=== PATIENT | male | born 1955 | race Caucasian/White ===

== ENCOUNTER 2020-08-30 07:32 | Outpatient (REF) | payer BC, SELFPAY ==
[2020-08-30 09:44] LABS: Prostate Specific Antigen 0.15 ng/mL (<0.05-4.0)
== END 2020-08-30 07:33 | disposition home or self-care (01) ==
LOC: HO.LAB 07:32
PROVIDERS: PCP Family Medicine; Visit Provider Urology
DX: C61 Malignant neoplasm of prostate (principal)
CPT/HCPCS: 36415; 84153

== ENCOUNTER → 2020-09-14 09:57 | Outpatient (BNVA) | payer BC, SELFPAY | PROVIDERS: PCP Family Medicine; Visit Provider Urology ==

== ENCOUNTER 2021-05-29 06:55 | Outpatient (REF) | payer BC, SELFPAY ==
[2021-05-29 09:01] LABS: PSA,Total (Free>4and<10) 0.17 ng/mL (0.00-4.00)
== END 2021-05-29 06:56 | disposition home or self-care (01) ==
LOC: HO.LAB 06:55
PROVIDERS: Absent Provider Urology; PCP Family Medicine; Visit Provider Urology
DX: C61 Malignant neoplasm of prostate (principal); Z12.5 Encounter for screening for malignant neoplasm of prostate
CPT/HCPCS: 36415; 84153

== ENCOUNTER → 2021-06-05 09:48 | Outpatient (BNVA) | payer BC, SELFPAY | PROVIDERS: PCP Family Medicine; Visit Provider Urology ==

== ENCOUNTER 2021-06-16 04:23 | Emergency (ER) | payer BC, SELFPAY ==
[2021-06-16 04:47] VITALS: BP 122/83; PULSE 72; RESP 15; TEMP 36.6; O2SAT 97; BMI 25.7
[2021-06-16 05:07] LABS: Basophils Percent Auto 0.8 % (0-2); Eosinophils Absolute Auto 0.1 X10*3/uL (0.0-0.4); Eosinophils Percent Auto 2.1 % (0-4); Hematocrit 43.4 % (42-52); Hemoglobin 14.7 g/dl (14.0-18.0); Imm Gran Abs Auto 0.02 X10*3/uL (0.00-0.03); Imm Gran Pct Auto 0.4 % (0.0-0.4); Lymphocytes Absolute Auto 0.9 X10*3/uL (1.2-4.9); MANUAL DIFF FLAG NO; Mean Corpuscular HGB Conc 33.9 g/dl (31.0-36.0); Mean Corpuscular Hemoglobin 31.2 pg (27.0-33.0); Mean Corpuscular Volume 92.1 fL (80-98); Monocytes Absolute Auto 0.6 X10*3/uL (0.1-1.2); Monocytes Percent Auto 12.6 % (2-11); Neutrophils Absolute Auto 3.1 X10*3/uL (2.0-8.3); Neutrophils Percent Auto 65.1 % (45-73); Platelet Count 294 X10*3/uL (160-400); Red Blood Count 4.71 X10*6/uL (4.60-5.80); Red Cell Distribution Width 12.7 % (11.0-16.0); White Blood Count 4.8 X10*3/uL (4.8-10.8)
[2021-06-16 05:16] LABS: Appearance Urine CLEAR; Color Urine YELLOW; Glucose Urine UA NEG (NEG); Leukocyte Esterase Urine NEG (NEG); Nitrite Urine NEG (NEG); Specific Gravity - Urine >= 1.030 (1.005-1.025); Urine Blood NEG (NEG); Urine Ketones NEG (NEG); Urine Protein NEG (NEG-TRACE)
[2021-06-16 05:32] LABS: Alanine Aminotransferase 22 U/L (0-40); Albumin Level 4.1 g/dL (3.5-5.0); Alkaline Phosphatase 66 U/L (39-117); Anion Gap 11 (12-20); Aspartate Amino Transferase 18 U/L (5-37); Bilirubin Total 0.6 mg/dL (0.0-1.0); Blood Urea Nitrogen 13 mg/dL (9-16); Calcium 9.5 mg/dL (8.4-10.2); Carbon Dioxide 25 mmol/L (22-29); Chloride 103 mmol/L (96-108); Creatinine Clr Calc Pharmacy 91.3; Estimated Glomerular Filt Rate > 60; Glucose Random 107 mg/dL (60-115); Potassium 4.2 mmol/L (3.3-5.1); Sodium 135 mmol/L (135-145); Total Protein 6.6 g/dL (6.5-8.0)
--- NOTE | 2021-06-16 05:36 | ED.GENADULT ---
HPI - General Adult General Chief complaint: General Medical Stated complaint: Pain when urinaring/Headache/Weakness Time Seen by Provider: 06/16/21 05:28 Source: patient Mode of arrival: ambulatory Limitations: no limitations History of Present Illness HPI narrative: Patient comes emergency room complaining of generalized weakness for 2 weeks. Patient complaining of dysuria for 6 weeks. Patient states that he is concerned that his renal function is not well. Patient states that he had kidney stones several years ago. Patient has an appointment in [address] scan to rule out nephrolithiasis. Patient denies fever chills, no flank pain Related Data Home Medications Medication Instructions Recorded Confirmed lisinopril 20 mg tablet 20 mg PO DAILY 09/14/20 06/16/21 famotidine 20 mg tablet 20 mg PO BID 06/05/21 06/16/21 Previous Rx's Medication Instructions Recorded finasteride 5 mg tablet 5 mg PO DAILY 90 Days #90 tab 06/05/21 Allergies Allergy/AdvReac Type Severity Reaction Status Date / Time No Known Allergies Allergy Verified 06/16/21 04:53 [No Known Allergies*] Review of Systems Review of Systems: Constitutional : No Weight loss, No Fever, No Chills, No Night Sweats, No Fatigue, No Malaise ENT/Mouth : No Hearing loss, No Ear Pain, No Nasal Congestion, No Sinus Pain, No Hoarseness, No sore throat, No Rhinorrhea, No Swallowing Difficulty Eyes: No Eye Pain, No Swelling, No Redness, No Foreign Body, No Discharge, No Vision Changes Cardiovascular : No Chest Pain, No SOB, No Dyspnea on Exertion, No Orthopnea, No Edema, No Palpitations Respiratory : No Cough, No Sputum, No Wheezing, No Smoke Exposure, No Dyspnea Gastrointestinal : No Nausea, No Vomiting, No Diarrhea, No Constipation, No abdominal Pain, No Hematochezia, No Melena Genitourinary : Complaining of chronic dysuria for more than 6 weeks, complaining of urinary frequency, especially at night, wakes up every hour to urinate, No Hematuria, No Urinary Incontinence, No Urgency, No Flank Pain, No Urinary Flow Changes, No Hesitancy Musculoskeletal : No joint pain, No Myalgias, No Joint Swelling Skin : No Skin Lesions, No rash Neuro : No Weakness, No Numbness, No Paresthesias, No Loss of Consciousness, No Dizziness, No Headache Psych : No Anxiety/Panic, No Depression, No SI/HI/AH/VH, No Social Issues, Heme/Lymph: No Bruising, No Bleeding,No Lymphadenopathy Endocrine : No Polyuria, No Polydipsia, No Temperature Intolerance [facility] Past Medical History Medical History Prostate cancer Renal stone Renal stones Social History Social History Alcohol intake: never Patient Tobacco Use Status: Never used Tobacco Use of substances other than those prescribed or required for medical reasons: No Advance Directives: No Physical Exam Vital Signs: Vital Signs: Last Vital Signs Temp 97.8 F 06/16/21 04:47 Pulse 72 06/16/21 04:47 Resp 15 06/16/21 04:47 BP 122/83 06/16/21 04:47 Pulse Ox 97 06/16/21 04:47 Body Mass Index 25.7 Const: Other: Appearance: Alert. Oriented X3. No acute distress. Very anxious Eyes: Pupils equal, round and reactive to light. ENT: Pharynx normal. Neck: Normal inspection. Neck supple. No lymph nodes noted. No crepitus CVS: Normal heart rate and rhythm. Pulses normal. Normal S1 and S2 Respiratory: No respiratory distress. Breath sounds normal. No Wheezing. No rales Abdomen: Soft and nontender. No rigidity. No distention. No CVA tenderness Skin: Skin warm and dry. Normal skin color. Normal skin turgor. Extremities: No lower extremity edema. No Lacerations. No Rash Neuro: Oriented X 3. No motor deficit. No sensory deficit. Moving all extermities. No slurred speech. Course Course Course Narrative: Patient declined to get a CT scan today, patient states that he will wait for his appointment in 4 days. Patient also declined a prescription for phenazopyridine. Medical Decision Making Lab Data Result diagrams: 06/16/21 05:02 06/16/21 05:03 Labs: Lab Results 06/16/21 06/16/21 06/16/21 Range/Units 05:02 05:02 05:03 WBC 4.8 (4.8-10.8) X10*3/uL RBC 4.71 (4.60-5.80) X10*6/uL Hgb 14.7 (14.0-18.0) g/dl Hct 43.4 (42-52) % MCV 92.1 (80-98) fL MCH 31.2 (27.0-33.0) pg MCHC 33.9 (31.0-36.0) g/dl RDW 12.7 (11.0-16.0) % Plt Count 294 (160-400) X10*3/uL MPV 9.0 L (9.4-12.4) fL Immature Gran % (Auto) 0.4 (0.0-0.4) % Neut % (Auto) 65.1 (45-73) % Lymph % (Auto) 19.0 L (20-40) % Terry % (Auto) 12.6 H (2-11) % Eos % (Auto) 2.1 (0-4) % Baso % (Auto) 0.8 (0-2) % Lymph # (Auto) 0.9 L (1.2-4.9) X10*3/uL Terry # (Auto) 0.6 (0.1-1.2) X10*3/uL Eos # (Auto) 0.1 (0.0-0.4) X10*3/uL Baso # (Auto) 0.0 (0.0-0.2) X10*3/uL Abs Immat Gran (auto) 0.02 (0.00-0.03) X10*3/uL Absolute Neuts (auto) 3.1 (2.0-8.3) X10*3/uL Absolute Nucleated RBC 0.000 (0.0-0.012) X10*3/uL Nucleated RBC % (auto) 0.0 (0.0-0.2) /100WBC Sodium 135 (135-145) mmol/L Potassium 4.2 (3.3-5.1) mmol/L Chloride 103 (96-108) mmol/L Carbon Dioxide 25 (22-29) mmol/L Anion Gap 11 L (12-20) BUN 13 (9-16) mg/dL Creatinine 0.87 (0.5-1.4) mg/dL Estim Creat Clear Calc 91.3 Estimated GFR > 60 Random Glucose 107 (60-115) mg/dL Calcium 9.5 (8.4-10.2) mg/dL Total Bilirubin 0.6 (0.0-1.0) mg/dL AST 18 (5-37) U/L ALT 22 (0-40) U/L Alkaline Phosphatase 66 (39-117) U/L Total Protein 6.6 (6.5-8.0) g/dL Albumin 4.1 (3.5-5.0) g/dL Urine Color YELLOW Urine Appearance CLEAR Urine pH 6.0 (5.0-8.0) Ur Specific [place] >= 1.030 H (1.005-1.025) Urine Protein NEG (NEG-TRACE) MG/DL Urine Glucose (UA) NEG (NEG) MG/DL Urine Ketones NEG (NEG) MG/DL Urine Blood NEG (NEG) Urine Nitrite NEG (NEG) Ur Leukocyte Esterase NEG (NEG) Discharge Plan Discharge Clinical Impression: Dysuria Patient Disposition: Home, Self-Care Instructions: Dysuria (ED) Additional Instructions: Please follow-up with your primary care physician tomorrow. If you have any worsening or new symptoms, please return to the emergency room or call 911 Prescriptions: No Action finasteride 5 mg tablet 5 mg PO DAILY 90 Days Qty: 90 RF: 1
[2021-06-16 05:50] VITALS: BP 110/80; PULSE 73; RESP 18; O2SAT 96
== END 2021-06-16 05:55 | disposition home or self-care (01) ==
PROVIDERS: Emergency Provider Emergency Medicine; PCP Family Medicine
DX: R30.0 Dysuria (principal); Z79.899 Other long term (current) drug therapy
CPT/HCPCS: 36415; 80053; 81003; 85025; 99283; 99284

== ENCOUNTER 2021-06-20 16:08 | Outpatient (REF) | payer BC, SELFPAY ==
--- NOTE | ~2021-06-20 | CT_ITS ---
EXAMINATION: CT ABDOMEN AND PELVIS WITHOUT CONTRAST CLINICAL INFORMATION: Calculus of kidney COMPARISON: 02/06/2017 TECHNIQUE: Multidetector volumetric imaging was performed from the superior aspect of the liver through the pubic symphysis. Sagittal and coronal reformatted images were obtained on the technologist's workstation. This CT examination was performed using dose optimization techniques as appropriate, variously including the following: *Automated exposure control *Adjustment of mA and/or kV according to patient size (this includes techniques or standardized protocols for targeted exams where dose is matched to indication/reason for exam; i.e. extremities or head) *Use of iterative reconstruction technique DLP: 474 mGy-cm FINDINGS: LUNG BASES: The visualized lung bases are clear. Coronary artery calcification. LIVER, GALLBLADDER, AND BILIARY TREE: The liver is normal in size, shape, and attenuation. No focal hepatic lesion or biliary ductal dilatation is present. The gallbladder is unremarkable with no evidence of radiopaque gallstones, gallbladder wall thickening, or obvious pericholecystic inflammatory changes. PANCREAS: Unremarkable. SPLEEN: Unremarkable. ADRENAL GLANDS: Unremarkable. KIDNEYS AND URETERS: The kidneys are normal in size, shape, and attenuation. No hydronephrosis or hydroureter. Multiple bilateral renal calculi are noted. On the right there are at least 4 calculi. 0.4 cm upper pole calculus is 10 cm from the posterior axillary line. There are 2 left-sided calculi measuring 0.2 cm at the midpole, 9.5 cm from the posterior axillary line. BLADDER: Unremarkable. GASTROINTESTINAL TRACT: Stomach is unremarkable. Normal caliber small bowel. No obstruction. Normal appendix. No colonic wall thickening or acute inflammatory change. No free air or free fluid. ABDOMINAL WALL: No significant hernia is appreciated. LYMPH NODES: Normal. VASCULAR: Normal caliber aorta with minimal atherosclerotic calcification. PELVIC VISCERA: No pelvic mass identified. OSSEOUS STRUCTURES: No acute or suspicious osseous abnormality. Mild degenerative changes of the spine. CT/CT abdomen pelvis wo con IMPRESSION: Multiple bilateral renal calculi without obstruction.
== END 2021-06-20 16:09 | disposition home or self-care (01) ==
LOC: HO.CT 16:08
PROVIDERS: PCP Family Medicine; Visit Provider Urology
DX: N20.0 Calculus of kidney (principal)
CPT/HCPCS: 74176

== ENCOUNTER → 2021-07-10 08:38 | Outpatient (BNVA) | payer BC, SELFPAY | PROVIDERS: PCP Family Medicine; Visit Provider Urology ==

== ENCOUNTER → 2021-07-25 14:30 | Outpatient (BNVA) | payer BC, SELFPAY | PROVIDERS: PCP Family Medicine; Visit Provider Urology | DX: C61 Malignant neoplasm of prostate (principal); N99.89 Other postprocedural complications and disorders of genitourinary system | CPT/HCPCS: 52000 ==

== ENCOUNTER 2021-08-27 11:11 | Day surgery (SDC) | payer BC, SELFPAY ==
[2021-08-20 13:56] VITALS: BMI 25.7
--- NOTE | 2021-08-22 15:41 | HO.ANESPROP2 ---
Documented by User: Arline Han NP 08/22/21 15:41 HPI - Anesthesia Eval Consult details Narrative: 66yo M for Cystoscopy stricture Dilation [facility] Active Problems Active Problems: All Active Problems (Updated 08/20/21 @ 13:54 by Saritha Smith RN) Dysuria (Acute) Anastomotic stricture of urinary tract (Acute) Renal stone (Acute) Prostate cancer (Acute) Past Medical History Medical History (Updated 08/20/21 @ 13:54 by Saritha Smith RN) GERD (gastroesophageal reflux disease) HTN (hypertension) Prostate cancer Renal stone Surgical History Surgical History (Updated 08/20/21 @ 13:50 by Saritha Smith RN) Hx of cystoscopy Hx of lithotripsy Hx of radical prostatectomy Social History Social History Alcohol intake: never Patient Tobacco Use Status: Never used Tobacco Advance Directives Information Provided: Yes (informational brochure mailed) Advance Directives on File: No Meds Allergies Allergy/AdvReac Type Severity Reaction Status Date / Time No Known Allergies Allergy Verified 07/25/21 14:42 [No Known Allergies*] Home Medications Medication Instructions Recorded Confirmed Last Taken Type lisinopril 20 mg tablet 20 mg PO DAILY 09/14/20 08/20/21 Unknown History famotidine 20 mg tablet 20 mg PO BID 06/05/21 08/20/21 Unknown History Exam Exam Date and Time: August 22, 2021 1541 Height,Weight and Vital Signs: Height 5 ft 11 in Weight 83.915 kg Pertinent Lab Results Pertinent Lab Results: Laboratory Tests 06/16/21 06/16/21 05:02 05:03 WBC 4.8 Hgb 14.7 Hct 43.4 Plt Count 294 Sodium 135 Potassium 4.2 Chloride 103 Carbon Dioxide 25 BUN 13 Creatinine 0.87 Assessment and Plan Assessment Anesthesia Assessment: Chart Reviewed Documented by User: Geovanny Mallory 08/27/21 12:57 PMFSH Past Medical History Medical History (Updated 08/20/21 @ 13:54 by Saritha Smith RN) GERD (gastroesophageal reflux disease) HTN (hypertension) Prostate cancer Renal stone Functional capacity: independent ambulation Family History Family history of problems with anesthesia: No Surgical History Surgical History (Updated 08/20/21 @ 13:50 by Saritha Smith RN) Hx of cystoscopy Hx of lithotripsy Hx of radical prostatectomy History of Problems with Anesthesia: Yes (Ponv ) Social History Social History Alcohol intake: never Patient Tobacco Use Status: Never used Tobacco Advance Directives Information Provided: Yes (informational brochure mailed) Advance Directives on File: No Meds Allergies Allergy/AdvReac Type Severity Reaction Status Date / Time No Known Allergies Allergy Verified 07/25/21 14:42 [No Known Allergies*] Home Medications Medication Instructions Recorded Confirmed Last Taken Type lisinopril 20 mg tablet 20 mg PO DAILY 09/14/20 08/20/21 Unknown History famotidine 20 mg tablet 20 mg PO BID 06/05/21 08/20/21 Unknown History Exam Airway Mallampati Class: IV TM Dist: >3cm Neck ROM: Full Loose/Missing/Broken Teeth: Yes (Chipped , poor dentation ) Heart: rrr Lungs: bl breath sounds Assessment and Plan Assessment Anesthesia Assessment: Anesthesia Plan Discussed Final Anesthetic Review Family History of Problems with Anesthesia: No History of Problems with Anesthesia: Yes (Ponv ) NPO: Yes ASA Class: II Final Preanesthetic Review: Anes Risks/Benef Reviewed Patient Risk: Intermediate Procedure Risk: Intermediate Anesthetic Plan Anesthetic Plan: GA Disposition: Standard PACU
[2021-08-27] VITALS (10 sets, daily range): BP systolic 110–124; BP diastolic 73–84; PULSE 63–89; RESP 13–18; TEMP 36.6–36.9; O2SAT 96–98
[2021-08-27] MEDS: Lactated Ringers 1,000 ML 100 ML IVCONT (12:40)
--- NOTE | 2021-08-27 14:14 | MHC.SHP ---
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 Plan for cystoscopy bladder neck incision Relevant Family History (Specify if Yes): No Relevant Social History: None Present Medications: see Short Stay Collaborative assessment Medical History: Significant History History of Previous Operations: No relevant previous surgery Allergies: Allergies Allergy/AdvReac Type Severity Reaction Status Date / Time No Known Allergies Allergy Verified 07/25/21 14:42 [No Known Allergies*] Review of Systems Sugical H&P ROS: Negative: Constitution, Cardiovascular, Respiratory, Neurological, Psychiatric, Hem-Onc, Allergic/Immunologic, Gastrointestinal, Genitourinary, Musculoskeletal, Integumentary, Endocrine and Eyes/Ears/Nose/Throat Exam Surgical H&P Exam: Normal: HEENT, Normal: Heart, Normal: Lungs, Normal: Extremities, Normal: Abdomen, Normal: Skin and Normal: Neurological Plan Diagnosis/Plan: Unchanged ( post radiation bladder neck contracture, plan for cystoscopy bladder neck incision) I have reviewed the history and physical and performed a pertinent physical examination on my patient. No changes have occurred unless specified.
--- NOTE | 2021-08-27 14:58 | P.OP_ITS ---
Operative Note Operative Note Date of Service: 08/27/21 Narrative: PreOperative Diagnosis: bladder neck contraction Post Operative Diagnosis: bladder stone in prostatic fossa with bladder neck narrowing Procedure: cystoscopy laser lithotripsy of bladder stone Surgeon: Dr Ronnell Pena Anesthesia: general Indications for procedure: 66-year-old male. Previous prostate cancer with prostatectomy and external beam radiation. Presented with weakness of stream in on cystoscopy unable to pass the bladder neck due to bladder neck contracture. Recommend operative bladder neck incision. Understands main adverse event would be incontinence. Procedure: After informed consent was verified the patient was brought to the operating room and placed in a supine position. Anesthesia was administered per protocol. patient was placed in modified dorsal lithotomy position and prepped and draped in sterile fashion. Safety pause time-out performed. Antibiotics being given. Cystoscopy performed with 22 Taiwanese cystoscope. Unable to advance beyond bladder neck. Appeared to have stone in prostatic fossa prevent thing advancement. Sensor guidewire placed through open-ended catheter. Cystoscope removed. Cystoscope placed again and laser fiber placed through open-ended catheter. Three hundred sixty micron laser fiber placed. Stone broken up and pieces were flushed back into the bladder. We could not advance 22 Taiwanese cystoscope. This was due to tightness at the bladder neck. We switched to a 18 Taiwanese cystoscope.At this point we were able to enter the bladder. All of the stone pieces were removed and some sent for analysis. Bladder neck was open enough To advance the 18 Taiwanese cystoscope.. Given prior radiation and concerns regarding healing we will not open any larger. A 16 Taiwanese Martínez catheter was placed alongside the Sensor wire into the bladder. The bladder was drained. The wire removed. He tolerated procedure well was extubated in operating room transferred in stable condition to the recovery area Pathology: bladder stones Drains: Martínez catheter 16 Taiwanese
== END 2021-08-27 16:50 | disposition home or self-care (01) ==
PROVIDERS: PCP Family Medicine; Visit Provider Urology
PROC: 0T7C8ZZ Dilation of Bladder Neck, Via Natural or Artificial Opening Endoscopic (ICD-10-PCS; CPT 52317; principal; 2021-08-27 13:00)
DX: N99.89 Other postprocedural complications and disorders of genitourinary system (principal); Y83.8 Other surgical procedures as the cause of abnormal reaction of the patient, or of later complication, without mention of misadventure at the time of the procedure; N32.0 Bladder-neck obstruction; Z92.3 Personal history of irradiation; Z85.46 Personal history of malignant neoplasm of prostate; Z90.79 Acquired absence of other genital organ(s); N21.0 Calculus in bladder; Z87.442 Personal history of urinary calculi; I10 Essential (primary) hypertension; K21.9 Gastro-esophageal reflux disease without esophagitis; Z79.899 Other long term (current) drug therapy
CPT/HCPCS: 52317; 88300; C1769; J1100; J1956; J2250; J2405; J2765; J3010

== ENCOUNTER → 2021-08-30 08:59 | Outpatient (BNVA) | payer BC, SELFPAY | PROVIDERS: PCP Family Medicine; Visit Provider Urology | DX: C61 Malignant neoplasm of prostate (principal); R30.0 Dysuria; N99.89 Other postprocedural complications and disorders of genitourinary system | CPT/HCPCS: 51700; 51798 ==

== ENCOUNTER → 2021-10-31 10:03 | Outpatient (BNVA) | payer BC, SELFPAY | PROVIDERS: PCP Family Medicine; Visit Provider Urology ==

== ENCOUNTER 2022-01-04 16:49 | Emergency (ER) | payer BC, SELFPAY ==
[2022-01-04 17:01] VITALS: BP 125/89; PULSE 100; RESP 19; TEMP 36.6; O2SAT 98; BMI 26.4
== END 2022-01-04 20:18 | disposition left against medical advice (07) ==
LOC: HO.ED 20:17
PROVIDERS: Emergency Provider Emergency Medicine; PCP Family Medicine
DX: R31.9 Hematuria, unspecified (principal)

== ENCOUNTER → 2022-01-08 08:15 | Outpatient (BNVA) | payer BC, SELFPAY | PROVIDERS: PCP Family Medicine; Visit Provider Urology | DX: N99.89 Other postprocedural complications and disorders of genitourinary system (principal) | CPT/HCPCS: 51700; 51798 ==

== ENCOUNTER → 2022-01-30 13:32 | Outpatient (BNVA) | payer BC, SELFPAY | PROVIDERS: PCP Family Medicine; Visit Provider Urology | DX: N99.89 Other postprocedural complications and disorders of genitourinary system (principal) | CPT/HCPCS: 51798 ==

== ENCOUNTER 2022-02-09 09:29 | Emergency (ER) | payer BC, SELFPAY ==
[2022-02-09 09:35] VITALS: BP 157/104; PULSE 130; RESP 18; TEMP 36.6; O2SAT 98; BMI 25.8
--- NOTE | 2022-02-09 09:42 | ED.MALEGU ---
HPI - Male Genitourinary General Chief complaint: Urogenital-Male Stated complaint: catheter not working/ pain in private area Time Seen by Provider: 02/09/22 09:42 Source: patient Mode of arrival: ambulatory Limitations: no limitations History of Present Illness HPI Narrative: Patient is a 66 year old male presenting to the emergency department today with a blocked urinary catheter. Patient states that his catheter was working this morning when all of a sudden he saw blood in his bag and the catheter stopped working. Patient denies any dizziness, lightheadedness, abdominal pain, nausea, vomiting, fever, chills, blurry vision, double vision, loss of vision, chest pain, difficulty breathing, shortness of breath, back pain, night sweats, pain with urination, increased urinary frequency, increased urinary urgency, blood in his urine or stool, syncope or a near syncopal episode, recent trauma or falls, bowel incontinence, bladder incontinence, bowel retention, bladder retention, or any other complaints at this time. Onset (ago): hour(s) Severity: mild Severity scale (1-10): 1 Relieving factors: none Exacerbating factors: none Associated symptoms: Reports denies other symptoms Related Data Home Medications Medication Instructions Recorded Confirmed lisinopril 20 mg tablet 20 mg PO DAILY 09/14/20 08/20/21 famotidine 20 mg tablet 20 mg PO BID 06/05/21 08/20/21 Previous Rx's Medication Instructions Recorded sulfamethoxazole 400 1 tab PO DAILY #10 tabs 08/27/21 mg-trimethoprim 80 mg tablet (Bactrim) finasteride 5 mg tablet 5 mg PO DAILY 90 days #90 tabs 12/17/21 phenazopyridine 100 mg tablet 100 mg PO TID PRN bladder spasms 5 01/08/22 (Pyridium) days #15 tabs tamsulosin 0.4 mg capsule 0.4 mg PO DAILY 21 days #21 caps 01/30/22 cephalexin 500 mg capsule 500 mg PO Q6H 7 days #28 caps 02/09/22 Allergies Allergy/AdvReac Type Severity Reaction Status Date / Time No Known Allergies Allergy Verified 10/31/21 10:21 [No Known Allergies*] Review of Systems Constitutional: Constitutional: Reports no additional constitutional complaints, Denies chills, Denies fever(s) and Denies night sweats Eyes: Eyes: Reports no additional eye complaints, Denies blurry vision, Denies change in vision, Denies diplopia, Denies eye discharge, Denies loss of vision and Denies eye pain ENT: Denies dizziness Cardiovascular: Cardiovascular: Reports no additional cardiovascular complaints, Denies chest pain, Denies lightheadedness, Denies Loss of Consciousness and Denies dyspnea Respiratory: Respiratory: Reports no additional respiratory complaints and Denies dyspnea Gastrointestinal: Gastrointestinal: Reports no additional gastrointestinal complaints, Denies abdominal pain, Denies melena, Denies hematochezia, Denies change in bowel habits and Denies change in stool character Genitourinary: Genitourinary: Reports no additional male genitourinary complaints, Reports hematuria, Denies oliguria, Denies difficulty urinating, Denies dysuria, Denies urinary frequency, Denies urinary hesitancy, Denies urinary incontinence and Denies urinary urgency Comments: clogged urinary catheter Musculoskeletal: Musculoskeletal: Reports no additional musculoskeletal complaints, Denies numbness and Denies tingling Neurologic: Denies dizziness, Denies loss of vision, Denies numbness and Denies tingling Psychiatric: Psychiatric: Reports no additional psychiatric complaints Endocrine: Endocrine: Reports no additional endocrine complaints Hematologic/Lymphatic: Hematologic/Lymphatic: Reports no additional hematologic/lymphatic complaints Allergic/Immunologic: Allergic/Immunologic: Reports no additional allergic/immunologic complaints PMFSH Past Medical History Attestation statement: The following information was validated with the patient. Source: old records reviewed Medical History GERD (gastroesophageal reflux disease) HTN (hypertension) Surgical History Hx of cystoscopy Hx of lithotripsy Hx of radical prostatectomy Social History Social History Alcohol intake: never Patient Tobacco Use Status: Never used Tobacco Use of substances other than those prescribed or required for medical reasons: No Advance Directives: No Advance Directives Information Provided: No Physical Exam Vital Signs: Vital Signs: Last Vital Signs Temp 98 F 02/09/22 09:35 Pulse 104 H 02/09/22 10:13 Resp 16 02/09/22 10:13 BP 119/81 02/09/22 10:13 Pulse Ox 96 02/09/22 10:13 O2 Del Method 02/09/22 10:13 BMI result Body Mass Index 25.8 Const: General: cooperative, no acute distress, alert and awake Nutritional Appearance: well nourished Orientation/consciousness: patient oriented x3 Limitations: no limitations HEENT: Head: Yes normal to inspection and Yes atraumatic Ears: hearing grossly normal bilaterally and external ears normal General nose exam: Normal external nose present, no nasal discharge noted and no epistaxis Face and sinus: Yes normal facial exam, No abrasion and No laceration Mouth: Normal oral and palatal mucosa present, no drooling and no muffled voice Eyes: General: appearance normal, both eyes and all related structures Periorbital: periorbital findings normal Eyelids: Yes eyelids normal Conjunctivae: conjunctivae normal Pupils: Equal, round and reactive pupils present EOM: EOMs intact bilaterally Neck: Neck: Yes normal visual inspection, Yes full ROM and Yes no lymphadenopathy Chest: Chest palpation & inspection: normal inspection of the chest Resp: Effort & Inspection: normal respiratory effort and able to speak in complete sentences Auscultation: clear to auscultation bilaterally Cardio: Rate: regular rate Rhythm: regular rhythm GI: Inspection: Yes normal to inspection : Other: trotter catheter in place Neuro: General: patient oriented x3 and moves all extremities Cranial nerves: Yes Equal, round and reactive pupils present Cognition (Neuro): normal cognition Motor exam (neuro): 5/5 motor strength present throughout Sensory Exam: Normal double simultaneous stimulation for sensation Coordination: [id number] test normal Extrem: General: Yes normal to inspection, Yes full ROM and Yes capillary refill normal Psych: Appearance: grossly normal Mental Status: mental status grossly normal Affect: normal affect Attitude: cooperative Thought process: Normal thought process present Thought content: Normal thought content present Insight: Good insight present (Psych) MDM - Male Genitourinary MDM Narrative Medical decision making narrative: Patient is a 66 year old male presenting to the emergency department today with a blocked urinary catheter. Patient's physical exam showed a blocked trotter catheter. Patient's catheter was manually irrigated at the bed side and unblocked the urinary catheter. Patient's urine showed an acute urinary tract infection. I explained my physical exam findings as well as all test results to the patient. I answered all questions asked by the patient. I stressed the importance of the patient taking his medication as prescribed. I stressed the importance of the patient following up with his primary care provider. I stressed the importance of the patient returning to the emergency department immediately if his symptoms were to worsen or if he were to develop any dizziness, shortness of breath, difficulty breathing, chest pain, blurry vision, loss of vision, nausea, vomiting, abdominal pain, fever, chills, back pain, or any other complaints. Patient verbalized agreement and understanding with this treatment plan and discharge. Differential Diagnosis Differential diagnosis: Likely urinary tract infection and acute retention of urine Medical Records Attestation: I reviewed the patient's medical records. Lab Data Attestation: I reviewed the patient's lab results. Labs: Lab Results 02/09/22 Range/Units 10:39 Urine Color YELLOW Urine Appearance HAZY Urine pH 6.0 (5.0-8.0) Ur Specific [place] >= 1.030 H (1.005-1.025) Urine Protein 1+ H (NEG-TRACE) MG/DL Urine Glucose (UA) NEG (NEG) MG/DL Urine Ketones NEG (NEG) MG/DL Urine Blood 3+ H (NEG) Urine Nitrite POS H (NEG) Ur Leukocyte Esterase 1+ H (NEG) Urine RBC 76-150 H (0) /HPF Urine WBC 10-14 H (0-4) /HPF Ur Squamous Epith Cells TRACE /LPF Calcium Oxalate Crystal TRACE /LPF Urine Bacteria 1+ /LPF Discharge Plan Discharge Clinical Impression: Urinary tract infection Patient Disposition: Home, Self-Care Instructions: Urinary Tract Infection in Men (ED) Additional Instructions: Follow up with your primary care provider and your urologist. Return to the emergency department immediately if your symptoms worsen or if you develop any dizziness, shortness of breath, difficulty breathing, chest pain, blurry vision, loss of vision, nausea, vomiting, abdominal pain, fever, chills, back pain, or any other complaints. Prescriptions: New cephalexin 500 mg capsule 500 mg PO Q6H 7 Days Qty: 28 0RF No Action finasteride 5 mg tablet 5 mg PO DAILY 90 Days Qty: 90 1RF tamsulosin 0.4 mg capsule 0.4 mg PO DAILY 21 Days Qty: 21 0RF sulfamethoxazole-trimethoprim [Bactrim] 400-80 mg tablet 1 tab PO DAILY Qty: 10 0RF famotidine 20 mg tablet 20 mg PO BID lisinopril 20 mg tablet 20 mg PO DAILY phenazopyridine [Pyridium] 100 mg tablet 100 mg PO TID PRN (Reason: bladder spasms) 5 Days Qty: 15 0RF Referrals: [facility] [place] Family Medicine [Provider Group] (Call to establish and follow up with a primary care provider. If you have a primary care provider, please follow up with their office. ) [facility] [place] Primary Care, Sanna [Provider Group] (Call to establish and follow up with a primary care provider. If you have a primary care provider, please follow up with their office. ) [facility] [place] Primary Care,Ken [Provider Group] (Call to establish and follow up with a primary care provider. If you have a primary care provider, please follow up with their office. ) [facility] [place] Urology Services [Provider Group] Interventions: ED Discharge Assessment Last Done: 02/09/22 11:43 Discharge Date/Time: 02/09/22 11:43 Print Language: Sami
--- NOTE | 2022-02-09 10:11 | PC.NURSE ---
Bladder scan 135ml Cath manually irrigated with approx 50ml of NS, no resistence with irrigation, approx 100ml of urine back into drainage bag. urine tinted red in color. Pt denies pain/discomfort.
[2022-02-09 10:13] VITALS: BP 119/81; PULSE 104; RESP 16; O2SAT 96
--- NOTE | 2022-02-09 10:41 | PC.NURSE ---
Indwelling cath patent, yellow urine now noted. UA specimen obtained/sent. Pt continues to deny pain or persistent spasms he was having prior to irrigation.
[2022-02-09 10:51] LABS: Appearance Urine HAZY; Color Urine YELLOW; Glucose Urine UA NEG (NEG); Leukocyte Esterase Urine 1+ (NEG); Nitrite Urine POS (NEG); Specific Gravity - Urine >= 1.030 (1.005-1.025); UACC Culture Trigger YES; Urine Blood 3+ (NEG); Urine Ketones NEG (NEG); Urine Protein 1+ MG/DL (NEG-TRACE)
[2022-02-09 11:04] LABS: Bacteria Urine 1+ /LPF; Calcium Oxalate Crystals Urine TRACE /LPF; Squamous Epithelial Cell Urine TRACE /LPF
== END 2022-02-09 11:43 | disposition home or self-care (01) ==
PROVIDERS: Physician Assistant Medical; Emergency Provider Student in an Organized Health Care Education/Training Program
DX: N39.0 Urinary tract infection, site not specified (principal); T83.098A Other mechanical complication of other urinary catheter, initial encounter; Y73.8 Miscellaneous gastroenterology and urology devices associated with adverse incidents, not elsewhere classified; Y92.9 Unspecified place or not applicable; Z46.6 Encounter for fitting and adjustment of urinary device
CPT/HCPCS: 51798; 81001; 87086; 99284

== ENCOUNTER 2022-02-11 12:01 | Emergency (ER) | payer BC, SELFPAY ==
[2022-02-11 12:05] VITALS: BP 130/102; PULSE 113; RESP 20; TEMP 36.8; O2SAT 96; BMI 25.8
--- NOTE | 2022-02-11 14:54 | ED_ITS ---
HPI - Male Genitourinary General Chief complaint: Urogenital-Male Stated complaint: Catheter Site Bleeding Time Seen by Provider: 02/11/22 13:38 Source: patient Mode of arrival: ambulatory Limitations: no limitations History of Present Illness HPI Narrative: patient has had a catheter in for urinary obstruction, this one was placed 12 days ago, seen three days ago for blockage and the catheter was flushed. the u rine showed an infection, yesterday the catheter showed blood. No trauma, patient gets bladder spasms, Patient is currently taking keflex for 7 days. Patient denies fever or chills. Culture showed mixed stefanie Onset (ago): day(s) Duration: intermittent Related Data Home Medications Medication Instructions Recorded Confirmed lisinopril 20 mg tablet 20 mg PO DAILY 09/14/20 08/20/21 famotidine 20 mg tablet 20 mg PO BID 06/05/21 08/20/21 Previous Rx's Medication Instructions Recorded sulfamethoxazole 400 1 tab PO DAILY #10 tabs 08/27/21 mg-trimethoprim 80 mg tablet (Bactrim) finasteride 5 mg tablet 5 mg PO DAILY 90 days #90 tabs 12/17/21 phenazopyridine 100 mg tablet 100 mg PO TID PRN bladder spasms 5 01/08/22 (Pyridium) days #15 tabs tamsulosin 0.4 mg capsule 0.4 mg PO DAILY 21 days #21 caps 01/30/22 cephalexin 500 mg capsule 500 mg PO Q6H 7 days #28 caps 02/09/22 Allergies Allergy/AdvReac Type Severity Reaction Status Date / Time No Known Allergies Allergy Verified 10/31/21 10:21 [No Known Allergies*] Review of Systems Neurologic: Denies Sensory deficit (Neuro) [facility] Past Medical History Medical History GERD (gastroesophageal reflux disease) HTN (hypertension) Surgical History Hx of cystoscopy Hx of lithotripsy Hx of radical prostatectomy Social History Social History Alcohol intake: never Patient Tobacco Use Status: Never used Tobacco Use of substances other than those prescribed or required for medical reasons: No Advance Directives: No Advance Directives Information Provided: No Physical Exam Vital Signs: Vital Signs: Last Vital Signs Temp 98.6 F 02/11/22 16:28 Pulse 88 02/11/22 16:28 Resp 16 02/11/22 16:28 BP 127/81 02/11/22 16:28 Pulse Ox 98 02/11/22 16:28 O2 Del Method 02/11/22 16:28 BMI result Body Mass Index 25.8 Const: General: healthy appearing Nutritional Appearance: average body habitus Orientation/consciousness: oriented to person and patient oriented x3 Limitations: no limitations HEENT: Head: Yes normal to inspection Ears: external ears normal General nose exam: Normal external nose present Mouth: Normal oral and palatal mucosa present and oropharynx normal Throat: Yes posterior oropharynx normal Eyes: General: appearance normal, both eyes and all related structures Neck: Other: supple Neck: Yes normal visual inspection Chest: Chest palpation & inspection: normal inspection of the chest Resp: Auscultation: clear to auscultation bilaterally Cardio: Jugular venous distension: no JVD Rate: regular rate Rhythm: regular rhythm Heart sounds: S1 normal heart sound present and S2 normal heart sound present GI: Inspection: Yes normal to inspection Palpation (GI): Soft to palpation, nontender and No hepatosplenomegaly present Auscultation: normal bowel sounds : Other: trotter in place General: Yes no CVA tenderness Back/Spine/Pelvis: Back: no CVA tenderness Skin: General skin exam: no rashes or lesions noted Neuro: General: oriented to person and patient oriented x3 Cranial nerves: Yes CN's II-XII intact bilaterally Motor exam (neuro): 5/5 motor strength present throughout Sensory Exam: No Sensory deficit (Neuro) Extrem: General: Yes normal to inspection Psych: Appearance: grossly normal Course Reevaluation(s) Reevaluation #1: Patient with stable HCT, UA negative, urine culture negative, patient still on keflex will discuss with Dr. Pena and mauricio reid home Time: 17:45 Reevaluation #2: discussed with Dr Jean aragon dc home Time: 18:16 MDM - Male Genitourinary Lab Data Result diagrams: 02/11/22 15:34 02/11/22 15:34 Labs: Lab Results 02/11/22 02/11/22 02/11/22 Range/Units 15:34 15:34 15:34 WBC 9.4 (4.8-10.8) X10*3/uL RBC 4.67 (4.60-5.80) X10*6/uL Hgb 14.1 (14.0-18.0) g/dl Hct 42.9 (42.0-52.0) % MCV 91.9 (80.0-98.0) fL MCH 30.2 (27.0-33.0) pg MCHC 32.9 (31.0-36.0) g/dl RDW 12.7 (11.0-16.0) % Plt Count 322 (160-400) X10*3/uL MPV 8.9 L (9.4-12.4) fL Immature Gran % (Auto) 0.4 (0.0-0.4) % Neut % (Auto) 73.2 H (45-73) % Lymph % (Auto) 16.0 L (20-40) % [place] % (Auto) 9.3 (2-11) % Eos % (Auto) 0.7 (0-4) % Baso % (Auto) 0.4 (0-2) % Lymph # (Auto) 1.5 (1.2-4.9) X10*3/uL [place] # (Auto) 0.9 (0.1-1.2) X10*3/uL Eos # (Auto) 0.1 (0.0-0.4) X10*3/uL Baso # (Auto) 0.0 (0.0-0.2) X10*3/uL Abs Immat Gran (auto) 0.04 H (0.00-0.03) X10*3/uL Absolute Neuts (auto) 6.9 (2.0-8.3) x10*3/uL Absolute Nucleated RBC 0.000 (0.0-0.012) X10*3/uL Nucleated RBC % (auto) 0.0 (0.0-0.2) /100WBC Sodium 139 (135-145) mmol/L Potassium 4.4 (3.3-5.1) mmol/L Chloride 103 (96-108) mmol/L Carbon Dioxide 27 (22-29) mmol/L Anion Gap 13 (12-20) BUN 10 (9-16) mg/dL Creatinine 0.88 (0.5-1.4) mg/dL Estim Creat Clear Calc 87.5 Estimated GFR > 60 Random Glucose 79 (60-115) mg/dL Calcium 9.5 (8.4-10.2) mg/dL Urine Color RED A Urine Appearance TURBID Urine pH 6.0 (5.0-8.0) Ur Specific [place] >= 1.030 H (1.005-1.025) Urine Protein 2+ H (NEG-TRACE) MG/DL Urine Glucose (UA) NEG (NEG) MG/DL Urine Ketones NEG (NEG) MG/DL Urine Blood 3+ H (NEG) Urine Nitrite NEG (NEG) Ur Leukocyte Esterase 1+ H (NEG) Urine RBC 76-150 H (0) /HPF Urine WBC 10-14 H (0-4) /HPF Ur Squamous Epith Cells TRACE /LPF Urine Bacteria 1+ /LPF Discharge Plan Discharge Clinical Impression: Hematuria Patient Disposition: Home, Self-Care Instructions: Trotter Catheter Placement and Care (ED), Hematuria (ED) Prescriptions: No Action finasteride 5 mg tablet 5 mg PO DAILY 90 Days Qty: 90 1RF tamsulosin 0.4 mg capsule 0.4 mg PO DAILY 21 Days Qty: 21 0RF sulfamethoxazole-trimethoprim [Bactrim] 400-80 mg tablet 1 tab PO DAILY Qty: 10 0RF cephalexin 500 mg capsule 500 mg PO Q6H 7 Days Qty: 28 0RF famotidine 20 mg tablet 20 mg PO BID lisinopril 20 mg tablet 20 mg PO DAILY phenazopyridine [Pyridium] 100 mg tablet 100 mg PO TID PRN (Reason: bladder spasms) 5 Days Qty: 15 0RF Referrals: Ronnell Pena MD [Physician] - 3 days
[2022-02-11 15:36] VITALS: BP 123/83; PULSE 87; RESP 16; TEMP 37.1; O2SAT 97
[2022-02-11 15:43] LABS: MANUAL DIFF FLAG NO
[2022-02-11 15:45] LABS: Basophils Percent Auto 0.4 % (0-2); Eosinophils Absolute Auto 0.1 X10*3/uL (0.0-0.4); Eosinophils Percent Auto 0.7 % (0-4); Hematocrit 42.9 % (42.0-52.0); Hemoglobin 14.1 g/dl (14.0-18.0); Imm Gran Abs Auto 0.04 X10*3/uL (0.00-0.03); Imm Gran Pct Auto 0.4 % (0.0-0.4); Lymphocytes Absolute Auto 1.5 X10*3/uL (1.2-4.9); Mean Corpuscular HGB Conc 32.9 g/dl (31.0-36.0); Mean Corpuscular Hemoglobin 30.2 pg (27.0-33.0); Mean Corpuscular Volume 91.9 fL (80.0-98.0); Mean Platelet Volume 8.9 fL (9.4-12.4); Monocytes Absolute Auto 0.9 X10*3/uL (0.1-1.2); Monocytes Percent Auto 9.3 % (2-11); Neutrophils Absolute Auto 6.9 x10*3/uL (2.0-8.3); Neutrophils Percent Auto 73.2 % (45-73); Platelet Count 322 X10*3/uL (160-400); Red Blood Count 4.67 X10*6/uL (4.60-5.80); Red Cell Distribution Width 12.7 % (11.0-16.0); White Blood Count 9.4 X10*3/uL (4.8-10.8)
[2022-02-11 15:57] LABS: Appearance Urine TURBID; Color Urine RED; Glucose Urine UA NEG (NEG); Leukocyte Esterase Urine 1+ (NEG); Nitrite Urine NEG (NEG); Specific Gravity - Urine >= 1.030 (1.005-1.025); UACC Culture Trigger YES; Urine Blood 3+ (NEG); Urine Ketones NEG (NEG); Urine Protein 2+ MG/DL (NEG-TRACE)
[2022-02-11 15:59] LABS: Anion Gap 13 (12-20); Blood Urea Nitrogen 10 mg/dL (9-16); Calcium 9.5 mg/dL (8.4-10.2); Carbon Dioxide 27 mmol/L (22-29); Chloride 103 mmol/L (96-108); Creatinine Clr Calc Pharmacy 87.5; Estimated Glomerular Filt Rate > 60; Glucose Random 79 mg/dL (60-115); Potassium 4.4 mmol/L (3.3-5.1); Sodium 139 mmol/L (135-145)
[2022-02-11 16:10] LABS: Bacteria Urine 1+ /LPF; Squamous Epithelial Cell Urine TRACE /LPF
[2022-02-11 16:28] VITALS: BP 127/81; PULSE 88; RESP 16; TEMP 37; O2SAT 98
== END 2022-02-11 18:26 | disposition home or self-care (01) ==
PROVIDERS: Emergency Provider Emergency Medicine; PCP Family Medicine
DX: R31.9 Hematuria, unspecified (principal); Z79.899 Other long term (current) drug therapy
CPT/HCPCS: 36415; 80048; 81001; 81003; 85025; 99284

== ENCOUNTER 2022-02-12 17:18 | Emergency (ER) | payer BC, SELFPAY ==
[2022-02-12 18:10] VITALS: BP 123/89; PULSE 110; RESP 26; TEMP 36.8; O2SAT 95; BMI 25.8
[2022-02-12 18:25] LABS: Hematocrit 41.4 % (42.0-52.0); Hemoglobin 13.7 g/dl (14.0-18.0); Mean Corpuscular HGB Conc 33.1 g/dl (31.0-36.0); Mean Corpuscular Hemoglobin 30.1 pg (27.0-33.0); Mean Platelet Volume 8.7 fL (9.4-12.4); Platelet Count 342 X10*3/uL (160-400); Red Blood Count 4.55 X10*6/uL (4.60-5.80); Red Cell Distribution Width 12.7 % (11.0-16.0); White Blood Count 11.7 X10*3/uL (4.8-10.8)
[2022-02-12 18:39] LABS: Anion Gap 14 (12-20); Blood Urea Nitrogen 19 mg/dL (9-16); Calcium 9.4 mg/dL (8.4-10.2); Carbon Dioxide 22 mmol/L (22-29); Chloride 107 mmol/L (96-108); Creatinine Clr Calc Pharmacy 77.8; Estimated Glomerular Filt Rate > 60; Glucose Random 105 mg/dL (60-115); Potassium 4.9 mmol/L (3.3-5.1); Sodium 138 mmol/L (135-145)
[2022-02-12 22:19] VITALS: BP 126/85; PULSE 93; RESP 16; TEMP 37; O2SAT 98
--- NOTE | 2022-02-12 22:32 | ED_ITS ---
HPI - Male Genitourinary General Chief complaint: Urogenital-Male Stated complaint: catheter not working Time Seen by Provider: 02/12/22 22:32 Source: patient Mode of arrival: ambulatory Limitations: no limitations History of Present Illness HPI Narrative: Patient has history of prostate cancer status post surgery had urinary retention and Martínez catheter was placed yesterday today he comes as leaking around the F oley catheter. Related Data Home Medications Medication Instructions Recorded Confirmed lisinopril 20 mg tablet 20 mg PO DAILY 09/14/20 08/20/21 famotidine 20 mg tablet 20 mg PO BID 06/05/21 08/20/21 Previous Rx's Medication Instructions Recorded sulfamethoxazole 400 1 tab PO DAILY #10 tabs 08/27/21 mg-trimethoprim 80 mg tablet (Bactrim) finasteride 5 mg tablet 5 mg PO DAILY 90 days #90 tabs 12/17/21 phenazopyridine 100 mg tablet 100 mg PO TID PRN bladder spasms 5 01/08/22 (Pyridium) days #15 tabs tamsulosin 0.4 mg capsule 0.4 mg PO DAILY 21 days #21 caps 01/30/22 cephalexin 500 mg capsule 500 mg PO Q6H 7 days #28 caps 02/09/22 Allergies Allergy/AdvReac Type Severity Reaction Status Date / Time No Known Allergies Allergy Verified 10/31/21 10:21 [No Known Allergies*] Review of Systems Review of Systems: Yes all other systems are reviewed and are negative [facility] Past Medical History Medical History GERD (gastroesophageal reflux disease) HTN (hypertension) Surgical History Hx of cystoscopy Hx of lithotripsy Hx of radical prostatectomy Social History Social History Alcohol intake: never Patient Tobacco Use Status: Never used Tobacco Advance Directives: No Advance Directives Information Provided: No Physical Exam Vital Signs: Vital Signs: Last Vital Signs Temp 98.4 F 02/13/22 00:23 Pulse 81 02/13/22 00:23 Resp 16 02/13/22 00:23 BP 117/72 02/13/22 00:23 Pulse Ox 98 02/13/22 00:23 O2 Del Method 02/13/22 00:23 BMI result Body Mass Index 25.8 Appearance: Alert. Oriented X3. No acute distress. Anxious Neck: Normal inspection. Neck supple. CVS: Normal heart rate and rhythm. Pulses normal. Respiratory: No respiratory distress. Equal air entry bilateral, no wheezing/rales/rhonchi Abdomen: Soft and nontender. Bowel sounds are present, no mass palpable, no CVA tenderness Skin: Skin warm and dry. Normal skin color. Normal skin turgor. Extremities: No lower extremity edema. No calf tenderness Neuro: Oriented X 3. MDM - Male Genitourinary MDM Narrative Medical decision making narrative: Martínez catheter was removed and patient was able to urinate easily will discharge patient home Lab Data Result diagrams: 02/12/22 18:18 02/12/22 18:18 Labs: Lab Results 02/12/22 02/12/22 Range/Units 18:18 18:18 WBC 11.7 H (4.8-10.8) X10*3/uL RBC 4.55 L (4.60-5.80) X10*6/uL Hgb 13.7 L (14.0-18.0) g/dl Hct 41.4 L (42.0-52.0) % MCV 91.0 (80.0-98.0) fL MCH 30.1 (27.0-33.0) pg MCHC 33.1 (31.0-36.0) g/dl RDW 12.7 (11.0-16.0) % Plt Count 342 (160-400) X10*3/uL MPV 8.7 L (9.4-12.4) fL Absolute Nucleated RBC 0.000 (0.0-0.012) X10*3/uL Nucleated RBC % (auto) 0.0 (0.0-0.2) /100WBC Sodium 138 (135-145) mmol/L Potassium 4.9 (3.3-5.1) mmol/L Chloride 107 (96-108) mmol/L Carbon Dioxide 22 (22-29) mmol/L Anion Gap 14 (12-20) BUN 19 H D (9-16) mg/dL Creatinine 0.99 (0.5-1.4) mg/dL Estim Creat Clear Calc 77.8 Estimated GFR > 60 Random Glucose 105 (60-115) mg/dL Calcium 9.4 (8.4-10.2) mg/dL Discharge Plan Discharge Clinical Impression: Complication of Martínez catheter Patient Disposition: Home, Self-Care Instructions: Urinary Retention in Men (ED) Additional Instructions: Drink plenty of fluid Continue your medications as prescribed by urologist Follow-up with your urologist Prescriptions: No Action finasteride 5 mg tablet 5 mg PO DAILY 90 Days Qty: 90 1RF tamsulosin 0.4 mg capsule 0.4 mg PO DAILY 21 Days Qty: 21 0RF sulfamethoxazole-trimethoprim [Bactrim] 400-80 mg tablet 1 tab PO DAILY Qty: 10 0RF cephalexin 500 mg capsule 500 mg PO Q6H 7 Days Qty: 28 0RF famotidine 20 mg tablet 20 mg PO BID lisinopril 20 mg tablet 20 mg PO DAILY phenazopyridine [Pyridium] 100 mg tablet 100 mg PO TID PRN (Reason: bladder spasms) 5 Days Qty: 15 0RF Interventions: ED Discharge Assessment Last Done: 02/13/22 00:31 Discharge Date/Time: 02/13/22 00:33
[2022-02-13 00:23] VITALS: BP 117/72; PULSE 81; RESP 16; TEMP 36.9; O2SAT 98
--- NOTE | 2022-02-13 00:23 | PC.NURSE ---
Pt able to void 250 mL into bed side urinal. Bladder scanned to find 6 mL in the bladder. Provider notified, plan to discharge home without Martínez.
== END 2022-02-13 00:33 | disposition home or self-care (01) ==
PROVIDERS: Emergency Provider Internal Medicine; PCP Family Medicine
DX: R33.9 Retention of urine, unspecified (principal); T83.038A Leakage of other urinary catheter, initial encounter; Y73.8 Miscellaneous gastroenterology and urology devices associated with adverse incidents, not elsewhere classified; Y92.9 Unspecified place or not applicable; Z79.899 Other long term (current) drug therapy
CPT/HCPCS: 36415; 80048; 85027; 99283

== ENCOUNTER 2022-03-14 06:56 | Emergency (ER) | payer BC, SELFPAY ==
[2022-03-14 07:15] VITALS: BP 130/89; PULSE 117; RESP 18; TEMP 36.5; O2SAT 98; BMI 25.8
[2022-03-14 07:41] LABS: COVID-19 Test Negative (Negative)
[2022-03-14 09:55] LABS: MANUAL DIFF FLAG NO
[2022-03-14 09:58] LABS: Basophils Absolute Auto 0.1 X10*3/uL (0.0-0.2); Basophils Percent Auto 0.6 % (0-2); Eosinophils Absolute Auto 0.2 X10*3/uL (0.0-0.4); Eosinophils Percent Auto 1.6 % (0-4); Hematocrit 45.6 % (42.0-52.0); Hemoglobin 14.9 g/dl (14.0-18.0); Imm Gran Abs Auto 0.05 X10*3/uL (0.00-0.03); Imm Gran Pct Auto 0.5 % (0.0-0.4); Lymphocytes Absolute Auto 1.5 X10*3/uL (1.2-4.9); Lymphocytes Percent Auto 14.9 % (20-40); Mean Corpuscular HGB Conc 32.7 g/dl (31.0-36.0); Mean Corpuscular Hemoglobin 30.1 pg (27.0-33.0); Mean Corpuscular Volume 92.1 fL (80.0-98.0); Monocytes Absolute Auto 1.1 X10*3/uL (0.1-1.2); Monocytes Percent Auto 10.5 % (2-11); Neutrophils Absolute Auto 7.3 x10*3/uL (2.0-8.3); Neutrophils Percent Auto 71.9 % (45-73); Platelet Count 379 X10*3/uL (160-400); Red Blood Count 4.95 X10*6/uL (4.60-5.80); Red Cell Distribution Width 12.9 % (11.0-16.0); White Blood Count 10.1 X10*3/uL (4.8-10.8)
[2022-03-14 10:11] LABS: Alanine Aminotransferase 30 U/L (0-40); Albumin Level 4.6 g/dL (3.5-5.0); Alkaline Phosphatase 78 U/L (39-117); Anion Gap 13 (12-20); Aspartate Amino Transferase 22 U/L (5-37); Bilirubin Total 0.3 mg/dL (0.0-1.0); Blood Urea Nitrogen 14 mg/dL (9-16); Calcium 8.9 mg/dL (8.4-10.2); Carbon Dioxide 25 mmol/L (22-29); Chloride 107 mmol/L (96-108); Creatinine Clr Calc Pharmacy 66.4; Estimated Glomerular Filt Rate > 60; Glucose Random 103 mg/dL (60-115); Potassium 4.6 mmol/L (3.3-5.1); Sodium 140 mmol/L (135-145); Total Protein 7.6 g/dL (6.5-8.0)
--- NOTE | 2022-03-14 11:31 | ED.GENADULT ---
HPI - General Adult General Chief complaint: General Medical Stated complaint: ? bladder infection Time Seen by Provider: 03/14/22 11:31 History of Present Illness HPI narrative: 66-year-old male who presents to the emergency department for evaluation of needing to use self cath himself more frequently, headache, generalized weakness and fatigue and urinary retention with lower abdominal pain. The patient states that he had prostate cancer which was treated with radical prostatectomy and radiation therapy. He states that he has a history of urinary retention secondary to urethral strictures. The patient has had Martínez catheters in the past however he is now self catheterizing himself once a week and he states that this allows him to urinate normally. He states however since yesterday he has not been feeling well. He has had a [id number] headache, weakness and fatigue. He states he has had difficulty urinating and has had to catheterize himself at least 3 times and has obtained a large amount of urine after catheterize himself which is unusual. He states he is also having some pressure in his bladder area when he feels full and is unable to urinate. He is also taking Pyridium for the discomfort. Patient had a urinalysis which was positive on 02/09/2022 but a culture of grew mixed stefanie. MD complaint: Suprapubic pain Location: pelvis Radiation: non-radiation Severity: severe Quality: aching Pain Consistency: intermittent Relieving factors: other (Self catheterization) Exacerbating factors: none Associated symptoms: headaches and malaise Treatments prior to arrival: none Related Data Home Medications Medication Instructions Recorded Confirmed lisinopril 20 mg tablet 20 mg PO DAILY 09/14/20 08/20/21 famotidine 20 mg tablet 20 mg PO BID 06/05/21 08/20/21 mirabegron 25 mg tablet,extended 25 mg PO DAILY 02/20/22 release 24 hr (Myrbetriq) Previous Rx's Medication Instructions Recorded sulfamethoxazole 400 1 tab PO DAILY #10 tabs 08/27/21 mg-trimethoprim 80 mg tablet (Bactrim) finasteride 5 mg tablet 5 mg PO DAILY 90 days #90 tabs 12/17/21 phenazopyridine 100 mg tablet 100 mg PO TID PRN bladder spasms 5 01/08/22 (Pyridium) days #15 tabs tamsulosin 0.4 mg capsule 0.4 mg PO DAILY 21 days #21 caps 01/30/22 cephalexin 500 mg capsule 500 mg PO Q6H 7 days #28 caps 02/09/22 levofloxacin 500 mg tablet 500 mg PO DAILY 4 days #4 tabs 03/14/22 Allergies Allergy/AdvReac Type Severity Reaction Status Date / Time No Known Allergies Allergy Verified 02/20/22 08:37 [No Known Allergies*] Review of Systems Review of Systems: Yes all other systems are reviewed and are negative [facility] Past Medical History [facility] Narrative: Social history: He denies tobacco, alcohol and drug use. Medical History GERD (gastroesophageal reflux disease) HTN (hypertension) Prostate cancer Renal stone Surgical History Hx of cystoscopy Hx of lithotripsy Hx of radical prostatectomy Social History Social History Alcohol intake: never Patient Tobacco Use Status: Never used Tobacco Use of substances other than those prescribed or required for medical reasons: No Advance Directives: No Advance Directives Information Provided: No Physical Exam ED Vital Signs: Vital Signs - 24 hr 03/14/22 07:15 03/14/22 13:08 Temperature 97.7 F Pulse Rate 117 H 94 Respiratory Rate 18 16 Blood Pressure 130/89 128/86 Pulse Oximetry 98 96 Oxygen Delivery Method Room Air Room Air BMI result Body Mass Index 25.8 Const General: cooperative and no acute distress Orientation/consciousness: oriented to person and oriented to place Limitations: no limitations [facility] Head: Yes normal to inspection, Yes normocephalic and Yes atraumatic Ears: external ears normal General nose exam: Normal external nose present Face and sinus: Yes normal facial exam Mouth: Normal oral and palatal mucosa present Throat: Yes posterior oropharynx normal Eyes General: appearance normal, both eyes and all related structures Pupils: Equal, round and reactive pupils present Neck Neck: Yes normal visual inspection, Yes no lymphadenopathy, Yes trachea midline and Yes supple Chest Chest palpation & inspection: normal inspection of the chest and normal palpation of entire chest wall Resp Effort & Inspection: normal respiratory effort and able to speak in complete sentences Auscultation: clear to auscultation bilaterally Cardio Rate: regular rate Rhythm: regular rhythm Heart sounds: S1 normal heart sound present, S2 normal heart sound present and no murmurs GI Inspection: Yes normal to inspection Palpation (GI): Soft to palpation, nontender and no guarding Auscultation: normal bowel sounds General: Yes no CVA tenderness Back/Spine/Pelvis Back: no CVA tenderness Skin General skin exam: no rashes or lesions noted Neuro General: oriented to person and oriented to place Cranial nerves: Yes CN's II-XII intact bilaterally and Yes Equal, round and reactive pupils present Cognition (Neuro): normal cognition Motor exam (neuro): 5/5 motor strength present throughout Extrem General: Yes normal to inspection Psych Appearance: grossly normal Speech and movement: Normal speech and movement present Affect: normal affect Attitude: cooperative Thought process: Normal thought process present Thought content: Normal thought content present Course Course Course Narrative: 66-year-old male with history of prostate cancer status post radical prostatectomy and radiation treatment with a history of urinary retention and urethral strictures who self catheterize himself once a week secondary to strictures who presents emergency department for evaluation of urinary retention requiring self catheterization 3 times yesterday and once today. He is also complaining of headache, fatigue and weakness which were all new symptoms. Patient's vital signs initially revealed an elevated pulse of 117 but then this normalized to 94 without treatment, vital signs were otherwise unremarkable. Physical examination was unremarkable. Laboratory evaluation was obtained. CBC, CMP were normal. COVID-19 was negative. Urinalysis is pending collection 13 12: We will obtain a urine sample from the patient after obtaining the sample patient will be treated with Levaquin 500 mg once a day for 5 days. He was given his 1st dose here in the emergency department. At this time I do not think that he needs a Martínez catheter since he is able to self catheterize himself without any difficulty. I did discuss a wait and see approach versus starting antibiotics the patient would prefer starting antibiotics at this time. The patient will need to follow-up with his urologist her PCP to discuss the urine culture result and for further treatment. Medical Decision Making Lab Data Result diagrams: 03/14/22 09:42 03/14/22 09:42 Labs: Lab Results 03/14/22 03/14/22 03/14/22 Range/Units 07:19 09:42 09:42 WBC 10.1 (4.8-10.8) X10*3/uL RBC 4.95 (4.60-5.80) X10*6/uL Hgb 14.9 (14.0-18.0) g/dl Hct 45.6 (42.0-52.0) % MCV 92.1 (80.0-98.0) fL MCH 30.1 (27.0-33.0) pg MCHC 32.7 (31.0-36.0) g/dl RDW 12.9 (11.0-16.0) % Plt Count 379 (160-400) X10*3/uL MPV 9.0 L (9.4-12.4) fL Immature Gran % (Auto) 0.5 H (0.0-0.4) % Neut % (Auto) 71.9 (45-73) % Lymph % (Auto) 14.9 L (20-40) % [place] % (Auto) 10.5 (2-11) % Eos % (Auto) 1.6 (0-4) % Baso % (Auto) 0.6 (0-2) % Lymph # (Auto) 1.5 (1.2-4.9) X10*3/uL [place] # (Auto) 1.1 (0.1-1.2) X10*3/uL Eos # (Auto) 0.2 (0.0-0.4) X10*3/uL Baso # (Auto) 0.1 (0.0-0.2) X10*3/uL Abs Immat Gran (auto) 0.05 H (0.00-0.03) X10*3/uL Absolute Neuts (auto) 7.3 (2.0-8.3) x10*3/uL Absolute Nucleated RBC 0.000 (0.0-0.012) X10*3/uL Nucleated RBC % (auto) 0.0 (0.0-0.2) /100WBC Sodium 140 (135-145) mmol/L Potassium 4.6 (3.3-5.1) mmol/L Chloride 107 (96-108) mmol/L Carbon Dioxide 25 (22-29) mmol/L Anion Gap 13 (12-20) BUN 14 (9-16) mg/dL Creatinine 1.16 (0.5-1.4) mg/dL Estim Creat Clear Calc 66.4 Estimated GFR > 60 Random Glucose 103 (60-115) mg/dL Calcium 8.9 (8.4-10.2) mg/dL Total Bilirubin 0.3 (0.0-1.0) mg/dL AST 22 (5-37) U/L ALT 30 (0-40) U/L Alkaline Phosphatase 78 (39-117) U/L Total Protein 7.6 (6.5-8.0) g/dL Albumin 4.6 (3.5-5.0) g/dL COVID-19 (SPEEDY) Negative (Negative) COVID-19 Clin Com See Note Discharge Plan Discharge Clinical Impression: Acute urinary retention, Fatigue, Headache Urinary tract infection Qualifiers: Urinary tract infection type: acute cystitis Patient Disposition: Home, Self-Care Instructions: Urinary Tract Infection in Men (ED) Additional Instructions: I am concerned that your symptoms may be caused by urinary tract infection You were given Levaquin 500 mg orally in the emergency department. I am starting you on Levaquin 500 mg once a day for 4 more days, take your next dose tomorrow afternoon at around 1:00 pm. A urine culture should be available in 3-4 days and you can follow-up with your doctors to check this result. I recommend however that you complete the full 5 day course and that you continue to self-catheterize herself as needed Take ibuprofen 200 mg pills, 3 pills every 6 hours as needed for pain or fever. Take Tylenol (acetaminophen) 500 mg pills, 2 pills every 4 to 6 hours as needed for pain for fever. Follow-up with your doctor in 2 days. Please return to the emergency department if your symptoms get worse or if you develop any symptoms that are concerning to you. Prescriptions: New levofloxacin 500 mg tablet 500 mg PO DAILY 4 Days Qty: 4 0RF No Action finasteride 5 mg tablet 5 mg PO DAILY 90 Days Qty: 90 1RF tamsulosin 0.4 mg capsule 0.4 mg PO DAILY 21 Days Qty: 21 0RF sulfamethoxazole-trimethoprim [Bactrim] 400-80 mg tablet 1 tab PO DAILY Qty: 10 0RF cephalexin 500 mg capsule 500 mg PO Q6H 7 Days Qty: 28 0RF famotidine 20 mg tablet 20 mg PO BID lisinopril 20 mg tablet 20 mg PO DAILY phenazopyridine [Pyridium] 100 mg tablet 100 mg PO TID PRN (Reason: bladder spasms) 5 Days Qty: 15 0RF Myrbetriq 25 mg tablet extended release 24 hr 25 mg PO DAILY
[2022-03-14 13:08] VITALS: BP 128/86; PULSE 94; RESP 16; O2SAT 96
[2022-03-14 13:54] LABS: Appearance Urine CLEAR; Color Urine DK YELLOW; Glucose Urine UA NEG (NEG); Leukocyte Esterase Urine NEG (NEG); Urine Blood 1+ (NEG); Urine Ketones NEG (NEG)
[2022-03-14 14:03] LABS: UACC Culture Trigger NO
[2022-03-14] MEDS: levoFLOXacin 500 MG TABLET PO (14:03)
== END 2022-03-14 14:06 | disposition home or self-care (01) ==
PROVIDERS: Emergency Provider Emergency Medicine Emergency Medical Services; PCP Family Medicine
DX: N30.00 Acute cystitis without hematuria (principal); R33.9 Retention of urine, unspecified; R53.83 Other fatigue; R51.9 Headache, unspecified; R53.1 Weakness; Z20.822 Contact with and (suspected) exposure to COVID-19; I10 Essential (primary) hypertension; Z85.46 Personal history of malignant neoplasm of prostate; Z87.442 Personal history of urinary calculi; Z79.899 Other long term (current) drug therapy
CPT/HCPCS: 51701; 80053; 81001; 81003; 85025; 87635; 99284

== ENCOUNTER 2022-05-02 06:51 | Outpatient (REF) | payer BC, SELFPAY ==
[2022-05-02 08:47] LABS: Prostate Specific Antigen 0.16 ng/mL (<0.05-4.0)
== END 2022-05-02 06:52 | disposition home or self-care (01) ==
LOC: HO.LAB 06:51
PROVIDERS: PCP Family Medicine; Visit Provider Urology
DX: Z12.5 Encounter for screening for malignant neoplasm of prostate (principal); C61 Malignant neoplasm of prostate
CPT/HCPCS: 36415; 84153

== ENCOUNTER → 2022-05-22 08:50 | Outpatient (BNVA) | payer BC, SELFPAY | PROVIDERS: PCP Family Medicine; Visit Provider Urology | DX: N32.89 Other specified disorders of bladder (principal); C61 Malignant neoplasm of prostate | CPT/HCPCS: 51798 ==

== ENCOUNTER → 2022-07-31 15:39 | Outpatient (BNVA) | payer BC, SELFPAY | PROVIDERS: PCP Family Medicine; Visit Provider Urology | DX: N32.89 Other specified disorders of bladder (principal) ==

== ENCOUNTER 2022-10-29 09:25 | Outpatient (REF) | payer BC, SELFPAY ==
[2022-10-29 11:52] LABS: Prostate Specific Antigen 0.22 ng/mL (<0.05-4.0)
== END 2022-10-29 09:26 | disposition home or self-care (01) ==
LOC: HO.LAB 09:25
PROVIDERS: PCP Family Medicine; Visit Provider Urology
DX: C61 Malignant neoplasm of prostate (principal); Z12.5 Encounter for screening for malignant neoplasm of prostate
CPT/HCPCS: 36415; 84153

== ENCOUNTER 2022-11-08 03:50 | Emergency (ER) | payer BC, SELFPAY ==
--- NOTE | ~2022-11-08 | CT_ITS ---
EXAMINATION: CT ABDOMEN AND PELVIS WITHOUT CONTRAST CLINICAL INFORMATION: Flank pain. COMPARISON: CT abdomen pelvis 06/20/2021. TECHNIQUE: Multidetector volumetric imaging was performed from the superior aspect of the liver through the pubic symphysis. Sagittal and coronal reformatted images were obtained on the technologist's workstation. This CT examination was performed using dose optimization techniques as appropriate, variously including the following: *Automated exposure control *Adjustment of mA and/or kV according to patient size (this includes techniques or standardized protocols for targeted exams where dose is matched to indication/reason for exam; i.e. extremities or head) *Use of iterative reconstruction technique DLP: 650 mGy-cm FINDINGS: LUNG BASES: There is a right middle lobe patchy atelectasis. Minimal subpleural scarring and platelike atelectasis seen in right lung base. There is a small hiatal hernia. LIVER, GALLBLADDER, AND BILIARY TREE: The liver is normal in size, shape, and attenuation. No focal hepatic lesion or biliary ductal dilatation is present. The gallbladder is unremarkable with no evidence of radiopaque gallstones, gallbladder wall thickening, or obvious pericholecystic inflammatory changes. PANCREAS: Unremarkable. SPLEEN: Unremarkable. ADRENAL GLANDS: Unremarkable. KIDNEYS AND URETERS: The kidneys are normal in size, shape, and attenuation. There is a punctate 1 mm calcification upper pole calyx left kidney and midpole calyx right kidney likely tiny stones. No caliectasis or hydronephrosis seen. The ureters are of normal caliber. No perinephric stranding. On previous exam, there are several small radio calculi, which have resolved. The smaller calculi seen previously are slightly larger by 1 mm or so. BLADDER: Unremarkable. GASTROINTESTINAL TRACT: Scattered stool and gas is seen in the colon without distention. No mural thickening or pericolic fat stranding. ABDOMINAL WALL: No significant hernia is appreciated. LYMPH NODES: Normal. VASCULAR: Unremarkable. PELVIC VISCERA: There are surgical scout posterior to the urinary bladder likely from prostatectomy. No free fluid. No abnormal pelvic or inguinal lymph nodes seen. OSSEOUS STRUCTURES: Mild degenerative disc changes with vacuum disc phenomena L4-L5 disc level. No aggressive lytic or sclerotic process seen. CT/CT abdomen pelvis wo IV con IMPRESSION: Punctate nonobstructive bilateral renal calculi. No caliectasis or hydronephrosis. Mild constipation. Small hiatal hernia. Fleischner guidelines were followed.
[2022-11-08 03:53] VITALS: BP 132/88; PULSE 121; RESP 18; TEMP 36.7; O2SAT 97; BMI 26.5
[2022-11-08 04:33] VITALS: BP 122/86; PULSE 104; RESP 16; O2SAT 95
[2022-11-08 04:33] LABS: Hematocrit 45.5 % (42.0-52.0); Hemoglobin 15.3 g/dl (14.0-18.0); Mean Corpuscular HGB Conc 33.6 g/dl (31.0-36.0); Mean Corpuscular Hemoglobin 29.7 pg (27.0-33.0); Mean Corpuscular Volume 88.2 fL (80.0-98.0); Mean Platelet Volume 8.7 fL (9.4-12.4); Platelet Count 333 X10*3/uL (160-400); Red Blood Count 5.16 X10*6/uL (4.60-5.80); Red Cell Distribution Width 13.1 % (11.0-16.0); White Blood Count 9.3 X10*3/uL (4.8-10.8)
[2022-11-08 04:33] LABS: Appearance Urine Clear; Color Urine Dark Yellow; Glucose Urine UA Negative (Negative); Leukocyte Esterase Urine Small (1+) (Negative); Nitrite Urine Positive (Negative); PH 6.5 (5.0-9.0); Specific Gravity - Urine 1.025 (1.005-1.025); UMIC TRIGGER UACC YES; Urine Blood Small (1+) (Negative); Urine Ketones Negative (Negative); Urine Protein 30 (1+) mg/dL (Neg-Trace)
--- NOTE | 2022-11-08 04:36 | PC.NURSE ---
Pt A&Ox4, denies any pain, reports dysuria with frequent urination and a bloated feeling, started suddenly yesterday morning. Denies any N/V. Denies flank and ABD pain. Urine sample collected and sent to lab. IV line placed and blood work collected and sent to lab.
[2022-11-08 04:44] LABS: Bacteria Urine None Seen (None Seen); Hyaline Casts Urine 0-2 /LPF (0-2); Squamous Epithelial Cell Urine 0-2 /HPF (0-2); UACC Culture Trigger YES
[2022-11-08 04:53] LABS: Alanine Aminotransferase 37 U/L (0-40); Albumin Level 4.2 g/dL (3.5-5.0); Alkaline Phosphatase 79 U/L (39-117); Anion Gap 15 (12-20); Aspartate Amino Transferase 28 U/L (5-37); Bilirubin Direct 0.2 mg/dL (0.0-0.5); Bilirubin Total 0.8 mg/dL (0.0-1.0); Blood Urea Nitrogen 16 mg/dL (9-16); Calcium 9.5 mg/dL (8.4-10.2); Carbon Dioxide 22 mmol/L (22-29); Chloride 106 mmol/L (96-108); Estimated Glomerular Filt Rate > 60; Glucose Random 113 mg/dL (60-115); Lipase 50 U/L (8-78); Potassium 4.1 mmol/L (3.3-5.1); Sodium 139 mmol/L (135-145); Total Protein 6.8 g/dL (6.5-8.0)
[2022-11-08 06:22] VITALS: BP 117/80; PULSE 80; RESP 16; TEMP 37; O2SAT 97
--- NOTE | 2022-11-08 07:06 | ED_ITS ---
HPI - Abdominal Pain General Chief Complaint: Abdominal Pain Stated Complaint: Pain when urinating Time Seen by Provider: 11/08/22 07:05 Source: patient Mode of arrival: ambulatory Limitations: no limitations History of Present Illness HPI narrative: dysuria starting yesterday, has had a history of bladder stone. Has had a similar situation and found a bladder stone which needed to be lasered. At that time he had a urethral dilation, also has a history of urinary retention. Has a history of prostate cancer with radiation and removal. MD elicited complaint: other (dysuria and frequency) Pain Consistency: intermittent Location: other (penis) Severity: moderate Quality: burning Related Data Home Medications Medication Instructions Recorded Confirmed lisinopril 20 mg tablet 20 mg PO DAILY 09/14/20 07/31/22 famotidine 20 mg tablet 20 mg PO BID 06/05/21 07/31/22 aspirin 81 mg tablet,delayed 81 mg PO DAILY 05/22/22 07/31/22 release (Adult Low Dose Aspirin) Previous Rx's Medication Instructions Recorded sulfamethoxazole 400 1 tab PO DAILY #10 tabs 08/27/21 mg-trimethoprim 80 mg tablet (Bactrim) finasteride 5 mg tablet 5 mg PO DAILY 90 days #90 tabs 12/17/21 phenazopyridine 100 mg tablet 100 mg PO TID PRN bladder spasms 5 01/08/22 (Pyridium) days #15 tabs cephalexin 500 mg capsule 500 mg PO Q6H 7 days #28 caps 02/09/22 levofloxacin 500 mg tablet 500 mg PO DAILY 4 days #4 tabs 03/14/22 tamsulosin 0.4 mg capsule 0.4 mg PO DAILY 30 days #30 caps 07/31/22 cephalexin 500 mg capsule 500 mg PO Q6H 10 days #40 caps 11/08/22 Allergies Allergy/AdvReac Type Severity Reaction Status Date / Time No Known Allergies Allergy Verified 11/08/22 03:57 [No Known Allergies*] Review of Systems Review of Systems Yes all other systems are reviewed and are negative Genitourinary: Reports urinary frequency Comments: dysuria PMFSH Past Medical History Medical History GERD (gastroesophageal reflux disease) HTN (hypertension) Prostate cancer Renal stone Surgical History Hx of cystoscopy Hx of lithotripsy Hx of radical prostatectomy Social History Social History Alcohol intake: never Patient Tobacco Use Status: Never used Tobacco Smoked in Last 30 Days: No Use of substances other than those prescribed or required for medical reasons: No Advance Directives: No Advance Directives Information Provided: Yes Physical Exam ED Vital Signs: Vital Signs - 24 hr 11/08/22 03:53 11/08/22 04:33 11/08/22 06:22 Temperature 98.1 F 98.6 F Pulse Rate 121 H 104 H 80 Respiratory Rate 18 16 16 Blood Pressure 132/88 122/86 117/80 Pulse Oximetry 97 95 97 Oxygen Delivery Method Room Air Room Air Room Air 11/08/22 08:17 Temperature 97.6 F Pulse Rate 80 Respiratory Rate 18 Blood Pressure 113/81 Pulse Oximetry 98 Oxygen Delivery Method Room Air BMI result Body Mass Index 26.5 Const General: healthy appearing Nutritional Appearance: average body habitus Orientation/consciousness: oriented to person and patient oriented x3 Limitations: no limitations HENMT Head: Yes normal to inspection Ears: external ears normal General nose exam: Normal external nose present Mouth: Normal oral and palatal mucosa present and oropharynx normal Throat: Yes posterior oropharynx normal Eyes General: appearance normal, both eyes and all related structures Neck Neck: Yes normal visual inspection Chest Chest palpation & inspection: normal inspection of the chest Resp Auscultation: clear to auscultation bilaterally Cardio Jugular venous distension: no JVD Rate: regular rate Rhythm: regular rhythm Heart sounds: S1 normal heart sound present and S2 normal heart sound present GI Inspection: Yes normal to inspection Palpation (GI): Soft to palpation, nontender and No hepatosplenomegaly present Auscultation: normal bowel sounds General: Yes no CVA tenderness Back/Spine/Pelvis Back: no CVA tenderness Skin General skin exam: no rashes or lesions noted Neuro General: oriented to person and patient oriented x3 Cranial nerves: Yes CN's II-XII intact bilaterally Motor exam (neuro): 5/5 motor strength present throughout Extrem General: Yes normal to inspection Psych Appearance: grossly normal Course Reevaluation(s) Reevaluation #1: no evidence of renal colic, will dc and treat for UTI with keflex Time: 12:08 Medical Decision Making Differential Diagnosis Differential Diagnoses: The differential diagnosis associated with the p resentation includes (renal colic, urinary retention, UTI, ) Admission/Observation Consideration of admission/observation: Escalation of care including admission/observation considered (In this male with prostate CA, urinary retention, severe infection, admission was considered) Lab Data MDM Lab Attestation statement: I reviewed the patient's lab results. 11/08/22 04:27 11/08/22 04:27 Labs: Lab Results 11/08/22 11/08/22 11/08/22 Range/Units 04:26 04:27 04:27 WBC 9.3 (4.8-10.8) X10*3/uL RBC 5.16 (4.60-5.80) X10*6/uL Hgb 15.3 (14.0-18.0) g/dl Hct 45.5 (42.0-52.0) % MCV 88.2 (80.0-98.0) fL MCH 29.7 (27.0-33.0) pg MCHC 33.6 (31.0-36.0) g/dl RDW 13.1 (11.0-16.0) % Plt Count 333 (160-400) X10*3/uL MPV 8.7 L (9.4-12.4) fL Absolute Nucleated RBC 0.000 (0.0-0.012) X10*3/uL Nucleated RBC % (auto) 0.0 (0.0-0.2) /100WBC Sodium 139 (135-145) mmol/L Potassium 4.1 (3.3-5.1) mmol/L Chloride 106 (96-108) mmol/L Carbon Dioxide 22 (22-29) mmol/L Anion Gap 15 (12-20) BUN 16 (9-16) mg/dL Creatinine 1.00 (0.5-1.4) mg/dL Estim Creat Clear Calc 76.0 Estimated GFR > 60 Random Glucose 113 (60-115) mg/dL Calcium 9.5 D (8.4-10.2) mg/dL Total Bilirubin 0.8 (0.0-1.0) mg/dL Direct Bilirubin 0.2 (0.0-0.5) mg/dL AST 28 (5-37) U/L ALT 37 (0-40) U/L Alkaline Phosphatase 79 (39-117) U/L Total Protein 6.8 (6.5-8.0) g/dL Albumin 4.2 (3.5-5.0) g/dL Lipase 50 (8-78) U/L Urine Color Dark Yellow Urine Appearance Clear Urine pH 6.5 (5.0-9.0) Ur Specific [place] 1.025 (1.005-1.025) Urine Protein 30 (1+) H (Neg-Trace) mg/dL Urine Glucose (UA) Negative (Negative) mg/dL Urine Ketones Negative (Negative) mg/dL Urine Blood Small (1+) H (Negative) Urine Nitrite Positive H (Negative) Ur Leukocyte Esterase Small (1+) H (Negative) Urine RBC 11-20 H (0-2) /HPF Urine WBC 6-10 H (0-5) /HPF Ur Squamous Epith Cells 0-2 (0-2) /HPF Urine Bacteria None Seen (None Seen) Hyaline Casts 0-2 (0-2) /LPF Independent Interpretation I performed an independent interpretation of an: Ultrasound (bedside ultrasound showed no urinary retention) External Record Review External record reviewed: Outpatient record (Dr. Pena's records) Chronic Conditions Patient?s care impacted by: Cancer (prostate CA) Medications Administered Discontinued Medications Generic Name Dose Route Start Last Admin Trade Name Sandra PRN Reason Stop Dose Admin Ceftriaxone Sodium 1 gm/ 50 mls @ 100 mls/hr 11/08/22 09:01 11/08/22 09:16 Sodium Chloride IV 11/08/22 09:30 100 mls/hr ONCE ONE Administration Discharge Plan Discharge Clinical Impression: Dysuria, Urinary tract infection Patient Disposition: Home, Self-Care Instructions: Urinary Tract Infection in Men (ED) Prescriptions: New cephalexin 500 mg capsule 500 mg PO Q6H 10 Days Qty: 40 0RF No Action finasteride 5 mg tablet 5 mg PO DAILY 90 Days Qty: 90 1RF sulfamethoxazole-trimethoprim [Bactrim] 400-80 mg tablet 1 tab PO DAILY Qty: 10 0RF cephalexin 500 mg capsule 500 mg PO Q6H 7 Days Qty: 28 0RF levofloxacin 500 mg tablet 500 mg PO DAILY 4 Days Qty: 4 0RF famotidine 20 mg tablet 20 mg PO BID lisinopril 20 mg tablet 20 mg PO DAILY aspirin [Adult Low Dose Aspirin] 81 mg tablet,delayed release (DR/EC) 81 mg PO DAILY tamsulosin 0.4 mg capsule 0.4 mg PO DAILY 30 Days Qty: 30 1RF phenazopyridine [Pyridium] 100 mg tablet 100 mg PO TID PRN (Reason: bladder spasms) 5 Days Qty: 15 0RF Referrals: Physician,Unknown J [Primary Care Provider] - 5 days Ronnell Pena MD [Physician] - 5 days
[2022-11-08 08:17] VITALS: BP 113/81; PULSE 80; RESP 18; TEMP 36.4; O2SAT 98
[2022-11-08] MEDS: cefTRIAXone sodium 1 GM in 0.9 % Sodium Chloride 50 ML IV (09:16)
[2022-11-08 12:43] VITALS: BP 124/76; PULSE 88; RESP 19; O2SAT 98
== END 2022-11-08 12:43 | disposition home or self-care (01) ==
PROVIDERS: Emergency Provider Emergency Medicine
DX: R30.0 Dysuria (principal); N39.0 Urinary tract infection, site not specified; Z79.899 Other long term (current) drug therapy
CPT/HCPCS: 36415; 74176; 80053; 81001; 82248; 83690; 85027; 87086; 96374; 99284; 99285; J0696

== ENCOUNTER → 2022-11-20 08:17 | Outpatient (BNVA) | payer BC, SELFPAY | PROVIDERS: Visit Provider Urology | DX: Z13.89 Encounter for screening for other disorder (principal) ==

== ENCOUNTER 2022-11-23 06:34 | Emergency (ER) | payer BC, SELFPAY ==
[2022-11-23 06:44] VITALS: BP 142/85; PULSE 81; RESP 16; TEMP 36.5; O2SAT 97; BMI 27.2
--- NOTE | 2022-11-23 06:48 | PC.NURSE ---
pt has no facial or oral swelling noted. pt talking in full sentences, no drooling, sat 97% on room air. steady gait. pt alert and oriented x4
[2022-11-23 08:06] VITALS: BP 131/81; PULSE 86; RESP 19; TEMP 36.5; O2SAT 97
--- NOTE | 2022-11-23 08:18 | ED_ITS ---
HPI - General Adult General Chief complaint: Allergic Reaction Stated complaint: ?Allergic Reaction Time Seen by Provider: 11/23/22 08:06 Source: patient Mode of arrival: ambulatory Limitations: no limitations History of Present Illness HPI narrative: 67 yo male with history of prostate cancer s/p radical prostatectomy, bladder stones, urethral stricture requiring patient to intermittently self catheterization, GERD, hypertension who presents the ER with multiple complaints. Patient reports he was seen here on November 08 and was diagnosed with a urinary tract infection and was prescribed cephalexin for 10 days. Patient reports he completed the course of antibiotics. He followed up with Urology who 11/20 with diagnosis bladder spasm, bladder neck contracture with plans for cystoscopy outpatient with bladder neck incision. Patient prescribed oxybutynin, Levaquin daily on Friday. Patient reports last night he developed a dry mouth, felt that it was difficult to swallow, shortly after had bilateral hand numbness. He left work early and went home to go to bed. Woke up feeling similar symptoms. Also feels that his legs are sore. He denies any numbness, tingling, weakness in the legs. He denies any weakness in the upper extremities, trunk. No fevers or chills. He is still having intermittent bladder spasms, difficulty urinating requiring home self caths. He denies any fevers, chills, abdominal pain, vomiting, flank pain, headache. Patient is concerned that he may be having allergic reaction to the Levaquin. He has taken the oxybutynin the past with no difficulty. His urine culture from November 08 was negative NO history of neurological disease or MG Related Data Home Medications Medication Instructions Recorded Confirmed lisinopril 20 mg tablet 20 mg PO DAILY 09/14/20 11/20/22 famotidine 20 mg tablet 20 mg PO BID 06/05/21 11/20/22 aspirin 81 mg tablet,delayed 81 mg PO DAILY 05/22/22 11/20/22 release (Adult Low Dose Aspirin) Previous Rx's Medication Instructions Recorded sulfamethoxazole 400 1 tab PO DAILY #10 tabs 08/27/21 mg-trimethoprim 80 mg tablet (Bactrim) finasteride 5 mg tablet 5 mg PO DAILY 90 days #90 tabs 12/17/21 phenazopyridine 100 mg tablet 100 mg PO TID PRN bladder spasms 5 01/08/22 (Pyridium) days #15 tabs cephalexin 500 mg capsule 500 mg PO Q6H 7 days #28 caps 02/09/22 tamsulosin 0.4 mg capsule 0.4 mg PO DAILY 30 days #30 caps 07/31/22 cephalexin 500 mg capsule 500 mg PO Q6H 10 days #40 caps 11/08/22 levofloxacin 500 mg tablet 500 mg PO DAILY 14 days #14 tabs 11/20/22 oxybutynin chloride 5 mg tablet 5 mg PO Q8H PRN bladder spasms #20 11/20/22 tabs Allergies Allergy/AdvReac Type Severity Reaction Status Date / Time No Known Allergies Allergy Verified 11/20/22 08:19 [No Known Allergies*] Review of Systems Review of Systems: Yes all other systems are reviewed and are negative Constitutional: Constitutional: Reports no additional constitutional complaints, Denies body ache(s), Denies chills, Denies fever(s), Denies headache(s) and Denies weakness Eyes: Eyes: Reports no additional eye complaints and Denies change in vision ENT: Reports system reviewed and no additional complaints, except as documented, Denies dizziness, Denies headache(s), Denies nasal congestion, Denies nasal discharge and Denies neck pain Cardiovascular: Cardiovascular: Reports no additional cardiovascular complaints, Denies chest pain, Denies leg edema and Denies dyspnea Respiratory: Respiratory: Reports no additional respiratory complaints, Denies cough and Denies dyspnea Gastrointestinal: Gastrointestinal: Reports no additional gastrointestinal complaints, Denies abdominal pain, Denies diarrhea, Denies nausea and Denies vomiting Genitourinary: Genitourinary: Reports difficulty urinating and Denies urinary incontinence Musculoskeletal: Musculoskeletal: Reports no additional musculoskeletal co mplaints, Denies back pain, Denies arthralgias, Denies joint swelling, Denies neck pain, Reports numbness and Denies tingling Integumentary/Breasts: Skin/Breast: Reports system reviewed and no additional complaints, except as docu and Denies rash Neurologic: Reports system reviewed and no additional complaints, except as documented, Denies dizziness, Denies headache(s), Reports numbness, Denies tingling and Denies weakness PMFSH Past Medical History Attestation statement: The following information was validated with the patient. Source: old records reviewed and nursing notes reviewed Medical History GERD (gastroesophageal reflux disease) HTN (hypertension) Prostate cancer Renal stone Surgical History Hx of cystoscopy Hx of lithotripsy Hx of radical prostatectomy Social History Social History Alcohol intake: never Patient Tobacco Use Status: Never used Tobacco Smoked in Last 30 Days: No Use of substances other than those prescribed or required for medical reasons: No Advance Directives: Yes Advance Directives on File: No Physical Exam ED Vital Signs: Vital Signs - 24 hr 11/23/22 06:44 11/23/22 08:06 11/23/22 09:50 Temperature 97.7 F 97.7 F 97.7 F Pulse Rate 81 86 80 Respiratory Rate 16 19 17 Blood Pressure 142/85 H 131/81 110/71 Pulse Oximetry 97 97 97 Oxygen Delivery Method Room Air Room Air Room Air BMI result Body Mass Index 27.2 Const General: cooperative, healthy appearing, comfortable and no acute distress Orientation/consciousness: patient oriented x3 Limitations: no limitations HENMT Head: Yes normal to inspection Ears: hearing grossly normal bilaterally General nose exam: Normal external nose present Face and sinus: Yes normal facial exam Mouth: Normal oral and palatal mucosa present, lip normal and tongue normal Throat: Yes posterior oropharynx normal, Yes tonsils normal and Yes uvula midline Eyes General: appearance normal, both eyes and all related structures Pupils: Equal, round and reactive pupils present Neck Neck: Yes normal visual inspection, Yes full ROM, Yes no lymphadenopathy and Yes no meningeal signs Chest Chest palpation & inspection: normal inspection of the chest Resp Effort & Inspection: normal respiratory effort Auscultation: clear to auscultation bilaterally Cardio Rate: regular rate Rhythm: regular rhythm Peripheral pulses: Peripheral pulses 2+ throughout GI Inspection: Yes normal to inspection Palpation (GI): Soft to palpation and nontender Auscultation: normal bowel sounds General: Yes no CVA tenderness Back/Spine/Pelvis Back: no CVA tenderness Thoracic/Lumbar Spine: thoracic and lumbar spine normal to inspection Skin General skin exam: no rashes or lesions noted Neuro Other: Patient reports he has intact sensation over the hands but states it feels duller when compared to the rest of his extremities. Fine and gross sensation intact however General: patient oriented x3, moves all extremities and no meningeal signs Cranial nerves: Yes CN's II-XII intact bilaterally, Yes Equal, round and reactive pupils present, Yes Bilaterally intact EOM present, Yes Nystagmus not present, Yes Normal facial strength present and Yes Midline tongue present Cognition (Neuro): normal cognition Gait exam (Neuro): Normal gait present Motor exam (neuro): 5/5 motor strength present throughout Sensory Exam: Normal double simultaneous stimulation for sensation Extrem General: Yes normal to inspection, Yes no pedal edema and Yes no calf tenderness Course Course Course Narrative: Labs are unremarkable. UA shows no signs of infection. Viral testing is negative. I do not feel that these are side effects from the patient's medi cation and I recommend that he continue these. He can discuss this further next week with his prescribing physician. Reviewed worrisome signs and symptoms of when to return to the emergency room. Comfortable plan for discharge home. Medical Decision Making Medical Decision Making [facility] Narrative: This is a 67-year-old male who has a longstanding history of urinary difficulty who is currently being followed by Dr. Pena from Urology for bladder neck contracture and bladder spasm. He was started on Levaquin and oxybutynin on Friday after being seen from Urology. Patient feels he may be having allergic reaction to Levaquin and describes feelings of dry throat, difficulty swallowing, numbness in both hands and soreness in both of his legs since last night. On arrival vitals are stable. Normal neurological exam with no focal deficits. Patient describes numbness in his hands but has the fine and gross sensation intact. No airway involvement, angioedema. Lungs are clear throughout. Continued difficulty urinating, bladder spasms. Will obtain labs, UA, viral testing Differential Diagnosis Differential Diagnoses: The differential diagnosis associated with the presentation includes Doubt CVA/ICH with no focal neurological deficit, electrolyte abnormality, UTI Less likely med reaction Lab Data [facility] Lab Attestation statement: I reviewed the patient's lab results. 11/23/22 09:02 11/23/22 09:02 Labs: Lab Results 11/23/22 11/23/22 11/23/22 Range/Units 09:02 09:02 09:02 WBC 6.0 (4.8-10.8) X10*3/uL RBC 4.97 (4.60-5.80) X10*6/uL Hgb 14.9 (14.0-18.0) g/dl Hct 44.7 (42.0-52.0) % MCV 89.9 (80.0-98.0) fL MCH 30.0 (27.0-33.0) pg MCHC 33.3 (31.0-36.0) g/dl RDW 13.2 (11.0-16.0) % Plt Count 325 (160-400) X10*3/uL MPV 8.9 L (9.4-12.4) fL Immature Gran % (Auto) 0.2 (0.0-0.4) % Neut % (Auto) 71.8 (45-73) % Lymph % (Auto) 14.9 L (20-40) % Hunt % (Auto) 10.9 (2-11) % Eos % (Auto) 1.5 (0-4) % Baso % (Auto) 0.7 (0-2) % Lymph # (Auto) 0.9 L (1.2-4.9) X10*3/uL Hunt # (Auto) 0.7 (0.1-1.2) X10*3/uL Eos # (Auto) 0.1 (0.0-0.4) X10*3/uL Baso # (Auto) 0.0 (0.0-0.2) X10*3/uL Abs Immat Gran (auto) 0.01 (0.00-0.03) X10*3/uL Absolute Neuts (auto) 4.3 (2.0-8.3) x10*3/uL Absolute Nucleated RBC 0.000 (0.0-0.012) X10*3/uL Nucleated RBC % (auto) 0.0 (0.0-0.2) /100WBC Sodium 140 (135-145) mmol/L Potassium 4.6 (3.3-5.1) mmol/L Chloride 107 (96-108) mmol/L Carbon Dioxide 25 (22-29) mmol/L Anion Gap 13 (12-20) BUN 13 (9-16) mg/dL Creatinine 0.87 (0.5-1.4) mg/dL Estim Creat Clear Calc 87.4 Estimated GFR > 60 Random Glucose 94 (60-115) mg/dL Calcium 9.3 (8.4-10.2) mg/dL Magnesium 2.2 (1.6-2.6) mg/dL Total Bilirubin 0.8 (0.0-1.0) mg/dL Direct Bilirubin 0.2 (0.0-0.5) mg/dL AST 23 (5-37) U/L ALT 23 (0-40) U/L Alkaline Phosphatase 70 (39-117) U/L Total Creatine Kinase 127 (38-174) U/L Total Protein 6.8 (6.5-8.0) g/dL Albumin 4.2 (3.5-5.0) g/dL Urine Color Urine Appearance Urine pH (5.0-9.0) Ur Specific [place] (1.005-1.025) Urine Protein (Neg-Trace) mg/dL Urine Glucose (UA) (Negative) mg/dL Urine Ketones (Negative) mg/dL Urine Blood (Negative) Urine Nitrite (Negative) Ur Leukocyte Esterase (Negative) Urine RBC (0-2) /HPF Urine WBC (0-5) /HPF Ur Squamous Epith Cells (0-2) /HPF Urine Bacteria (None Seen) Hyaline Casts (0-2) /LPF Influenza Type A (PCR) NEGATIVE (Negative) Influenza Type B (PCR) NEGATIVE (Negative) RSV RNA Qual (PCR) NEGATIVE (Negative) SARS-CoV-2 RNA (RT-PCR) NEGATIVE (Negative) 11/23/22 Range/Units 09:02 WBC (4.8-10.8) X10*3/uL RBC (4.60-5.80) X10*6/uL Hgb (14.0-18.0) g/dl Hct (42.0-52.0) % MCV (80.0-98.0) fL MCH (27.0-33.0) pg MCHC (31.0-36.0) g/dl RDW (11.0-16.0) % Plt Count (160-400) X10*3/uL MPV (9.4-12.4) fL Immature Gran % (Auto) (0.0-0.4) % Neut % (Auto) (45-73) % Lymph % (Auto) (20-40) % Hunt % (Auto) (2-11) % Eos % (Auto) (0-4) % Baso % (Auto) (0-2) % Lymph # (Auto) (1.2-4.9) X10*3/uL Hunt # (Auto) (0.1-1.2) X10*3/uL Eos # (Auto) (0.0-0.4) X10*3/uL Baso # (Auto) (0.0-0.2) X10*3/uL Abs Immat Gran (auto) (0.00-0.03) X10*3/uL Absolute Neuts (auto) (2.0-8.3) x10*3/uL Absolute Nucleated RBC (0.0-0.012) X10*3/uL Nucleated RBC % (auto) (0.0-0.2) /100WBC Sodium (135-145) mmol/L Potassium (3.3-5.1) mmol/L Chloride (96-108) mmol/L Carbon Dioxide (22-29) mmol/L Anion Gap (12-20) BUN (9-16) mg/dL Creatinine (0.5-1.4) mg/dL Estim Creat Clear Calc Estimated GFR Random Glucose (60-115) mg/dL Calcium (8.4-10.2) mg/dL Magnesium (1.6-2.6) mg/dL Total Bilirubin (0.0-1.0) mg/dL Direct Bilirubin (0.0-0.5) mg/dL AST (5-37) U/L ALT (0-40) U/L Alkaline Phosphatase (39-117) U/L Total Creatine Kinase (38-174) U/L Total Protein (6.5-8.0) g/dL Albumin (3.5-5.0) g/dL Urine Color Yellow Urine Appearance Cloudy Urine pH 8.0 (5.0-9.0) Ur Specific [place] 1.015 (1.005-1.025) Urine Protein Trace (Neg-Trace) mg/dL Urine Glucose (UA) Negative (Negative) mg/dL Urine Ketones Negative (Negative) mg/dL Urine Blood Negative (Negative) Urine Nitrite Negative (Negative) Ur Leukocyte Esterase Trace H (Negative) Urine RBC 0-2 (0-2) /HPF Urine WBC 0-5 (0-5) /HPF Ur Squamous Epith Cells 0-2 (0-2) /HPF Urine Bacteria None Seen (None Seen) Hyaline Casts 0-2 (0-2) /LPF Influenza Type A (PCR) (Negative) Influenza Type B (PCR) (Negative) RSV RNA Qual (PCR) (Negative) SARS-CoV-2 RNA (RT-PCR) (Negative) Discharge Plan Discharge Clinical Impression: Numbness and tingling in both hands Patient Disposition: Home, Self-Care Instructions: Paresthesia (ED) Additional Instructions: Your lab work is normal Your urine shows no signs of infection Your viral testing is negative I do not think that this is a allergic reaction to the medication so I would actually recommend that you continue this medication and follow-up with Dr. Pena next week for any additional concerns Prescriptions: No Action finasteride 5 mg tablet 5 mg PO DAILY 90 Days Qty: 90 1RF sulfamethoxazole-trimethoprim [Bactrim] 400-80 mg tablet 1 tab PO DAILY Qty: 10 0RF cephalexin 500 mg capsule 500 mg PO Q6H 7 Days Qty: 28 0RF cephalexin 500 mg capsule 500 mg PO Q6H 10 Days Qty: 40 0RF famotidine 20 mg tablet 20 mg PO BID lisinopril 20 mg tablet 20 mg PO DAILY aspirin [Adult Low Dose Aspirin] 81 mg tablet,delayed release (DR/EC) 81 mg PO DAILY levofloxacin 500 mg tablet 500 mg PO DAILY 14 Days Qty: 14 0RF oxybutynin chloride 5 mg tablet 5 mg PO Q8H PRN (Reason: bladder spasms) Qty: 20 0RF tamsulosin 0.4 mg capsule 0.4 mg PO DAILY 30 Days Qty: 30 1RF phenazopyridine [Pyridium] 100 mg tablet 100 mg PO TID PRN (Reason: bladder spasms) 5 Days Qty: 15 0RF Referrals: Ronnell Pena MD [Physician] - 1 week Interventions: ED Discharge Assessment Last Done: 11/23/22 10:45 Discharge Date/Time: 11/23/22 10:45
[2022-11-23 09:06] LABS: MANUAL DIFF FLAG NO
[2022-11-23 09:08] LABS: Basophils Percent Auto 0.7 % (0-2); Eosinophils Absolute Auto 0.1 X10*3/uL (0.0-0.4); Eosinophils Percent Auto 1.5 % (0-4); Hematocrit 44.7 % (42.0-52.0); Hemoglobin 14.9 g/dl (14.0-18.0); Imm Gran Abs Auto 0.01 X10*3/uL (0.00-0.03); Imm Gran Pct Auto 0.2 % (0.0-0.4); Lymphocytes Absolute Auto 0.9 X10*3/uL (1.2-4.9); Lymphocytes Percent Auto 14.9 % (20-40); Mean Corpuscular HGB Conc 33.3 g/dl (31.0-36.0); Mean Corpuscular Volume 89.9 fL (80.0-98.0); Mean Platelet Volume 8.9 fL (9.4-12.4); Monocytes Absolute Auto 0.7 X10*3/uL (0.1-1.2); Monocytes Percent Auto 10.9 % (2-11); Neutrophils Absolute Auto 4.3 x10*3/uL (2.0-8.3); Neutrophils Percent Auto 71.8 % (45-73); Platelet Count 325 X10*3/uL (160-400); Red Blood Count 4.97 X10*6/uL (4.60-5.80); Red Cell Distribution Width 13.2 % (11.0-16.0)
[2022-11-23 09:25] LABS: Alanine Aminotransferase 23 U/L (0-40); Albumin Level 4.2 g/dL (3.5-5.0); Alkaline Phosphatase 70 U/L (39-117); Anion Gap 13 (12-20); Appearance Urine Cloudy; Aspartate Amino Transferase 23 U/L (5-37); Bilirubin Direct 0.2 mg/dL (0.0-0.5); Bilirubin Total 0.8 mg/dL (0.0-1.0); Blood Urea Nitrogen 13 mg/dL (9-16); Calcium 9.3 mg/dL (8.4-10.2); Carbon Dioxide 25 mmol/L (22-29); Chloride 107 mmol/L (96-108); Color Urine Yellow; Creatinine Clr Calc Pharmacy 87.4; Estimated Glomerular Filt Rate > 60; Glucose Random 94 mg/dL (60-115); Glucose Urine UA Negative (Negative); Leukocyte Esterase Urine Trace (Negative); Magnesium 2.2 mg/dL (1.6-2.6); Nitrite Urine Negative (Negative); Potassium 4.6 mmol/L (3.3-5.1); Sodium 140 mmol/L (135-145); Specific Gravity - Urine 1.015 (1.005-1.025); Total Protein 6.8 g/dL (6.5-8.0); UMIC TRIGGER UACC YES; Urine Blood Negative (Negative); Urine Ketones Negative (Negative); Urine Protein Trace mg/dL (Neg-Trace)
[2022-11-23 09:30] LABS: Bacteria Urine None Seen (None Seen); Hyaline Casts Urine 0-2 /LPF (0-2); RBC Urine 0-2 /HPF (0-2); Squamous Epithelial Cell Urine 0-2 /HPF (0-2); WBC Urine 0-5 /HPF (0-5)
[2022-11-23 09:50] VITALS: BP 110/71; PULSE 80; RESP 17; TEMP 36.5; O2SAT 97
[2022-11-23 09:51] LABS: Influenza A PCR NEGATIVE (Negative); Influenza B PCR NEGATIVE (Negative); Resp Syncy Virus RNA Qual PCR NEGATIVE (Negative); SARS COV2 PCR INHOUSE NEGATIVE (Negative)
== END 2022-11-23 10:45 | disposition home or self-care (01) ==
PROVIDERS: Nurse Practitioner Family; Emergency Provider Emergency Medicine; PCP Family Medicine
DX: R20.0 Anesthesia of skin (principal); R20.2 Paresthesia of skin; Z20.822 Contact with and (suspected) exposure to COVID-19; Z20.828 Contact with and (suspected) exposure to other viral communicable diseases; Z79.899 Other long term (current) drug therapy
CPT/HCPCS: 0241U; 36415; 80048; 80076; 81001; 82550; 83735; 85025; 99283; 99284

== ENCOUNTER 2022-12-30 13:36 | Day surgery (SDC) | payer BC, SELFPAY ==
--- NOTE | 2022-12-27 10:13 | HO.ANESPROP2 ---
Documented by User: Arline Han NP 12/27/22 10:15 HPI - Anesthesia Eval Consult details Narrative: 67yo M for Cystoscopy Incision Bladder Neck PMFSH Active Problems Active Problems: All Active Problems (Updated 11/24/22 @ 00:01 by Vipul Griggs) Bladder spasm (Acute) Bladder neck contracture (Acute) Dysuria (Acute) Anastomotic stricture of urinary tract (Acute) Renal stone (Acute) Prostate cancer (Acute) Past Medical History Medical History (Updated 12/30/22 @ 14:35 by Tina Saha) GERD (gastroesophageal reflux disease) History of radiation therapy HTN (hypertension) Prostate cancer Renal stone Family History Family history of problems with anesthesia: No Surgical History Surgical History Hx of cystoscopy Hx of lithotripsy Hx of radical prostatectomy History of Problems with Anesthesia: Yes (Ponv ) Social History Social History Alcohol intake: never Patient Tobacco Use Status: Never used Tobacco Use of substances other than those prescribed or required for medical reasons: No Are you DNR?: No Advance Directives: No Advance Directives Information Provided: Yes Meds Allergies Allergy/AdvReac Type Severity Reaction Status Date / Time levofloxacin Allergy Severe Difficulty Verified 12/30/22 14:37 Swallowing Home Medications Medication Instructions Recorded Confirmed Last Taken Type lisinopril 20 mg tablet 20 mg PO DAILY 09/14/20 12/30/22 Unknown History famotidine 20 mg tablet 20 mg PO BID 06/05/21 12/30/22 Unknown History aspirin 81 mg tablet,delayed 81 mg PO DAILY 05/22/22 12/30/22 12/23/22 History release (Adult Low Dose Aspirin) Exam Exam Date and Time: December 27, 2022 1013 Pertinent Lab Results Pertinent Lab Results: Laboratory Tests 11/23/22 11/23/22 09:02 09:02 WBC 6.0 Hgb 14.9 Hct 44.7 Plt Count 325 Sodium 140 Potassium 4.6 Chloride 107 Carbon Dioxide 25 BUN 13 Creatinine 0.87 Assessment and Plan Assessment Anesthesia Assessment: Chart Reviewed Final Anesthetic Review Family History of Problems with Anesthesia: No History of Problems with Anesthesia: Yes (Ponv ) Documented by User: Geovanny Mallory MD 12/30/22 18:19 PMFSH Past Medical History Medical History (Updated 12/30/22 @ 14:35 by Tina Saha) GERD (gastroesophageal reflux disease) History of radiation therapy HTN (hypertension) Prostate cancer Renal stone Functional capacity: independent ambulation Surgical History Surgical History Hx of cystoscopy Hx of lithotripsy Hx of radical prostatectomy Social History Social History Alcohol intake: never Patient Tobacco Use Status: Never used Tobacco Use of substances other than those prescribed or required for medical reasons: No Are you DNR?: No Advance Directives: No Advance Directives Information Provided: Yes Meds Allergies Allergy/AdvReac Type Severity Reaction Status Date / Time levofloxacin Allergy Severe Difficulty Verified 12/30/22 14:37 Swallowing Home Medications Medication Instructions Recorded Confirmed Last Taken Type lisinopril 20 mg tablet 20 mg PO DAILY 09/14/20 12/30/22 Unknown History famotidine 20 mg tablet 20 mg PO BID 06/05/21 12/30/22 Unknown History aspirin 81 mg tablet,delayed 81 mg PO DAILY 05/22/22 12/30/22 12/23/22 History release (Adult Low Dose Aspirin) Exam Airway Mallampati Class: IV Neck ROM: Full Loose/Missing/Broken Teeth: Yes (poor dentition , multiple chipped ) Assessment and Plan Assessment Anesthesia Assessment: Anesthesia Plan Discussed Final Anesthetic Review ASA Class: III Final Preanesthetic Review: Meds/Allgs Chart Reviewed, Consent Obtained/Reviewed and Anes Risks/Benef Reviewed Patient Risk: Intermediate Procedure Risk: Intermediate Anesthetic Plan Anesthetic Plan: GA and Agree w/ Assess. and Plan Disposition: Standard PACU
[2022-12-30 14:40] VITALS: BMI 27.3
[2022-12-30 14:50] VITALS: BP 136/87; PULSE 120; RESP 16; TEMP 36.9; O2SAT 97
[2022-12-30] MEDS: Lactated Ringers 1,000 ML 100 ML IVCONT (14:57)
--- NOTE | 2022-12-30 15:02 | PC.NURSE ---
DR. ANN MADE AWARE OF PATIENTS HR IN THE 120'S. PATIENT ALSO DID NOT TAKE MORNING METHADONE. PATIENT TOOK 4MG PO DILAUDID FOR PAIN THIS MORNING, STILL CURRENTLY IN 8/10 PAIN, ASKING FOR MORE PAIN MEDICATION NOW. UTOX ORDERED AND URINE OBTAINED. AWAITING RESULTS.
--- NOTE | 2022-12-30 15:04 | PC.NURSE ---
PATIENT MOVED TO PACU AND REPORT GIVEN TO AMADOU COLON AT 1500.
--- NOTE | 2022-12-30 16:47 | MHC.SHP ---
Pre-Procedural Eval Section A Date of Service: 12/30/22 The patient is an INPATIENT: No Changes since office visit: No Cold of Flu in the past 2 weeks, No New Medical Problems, No Changes in Medication and No Patient answered all questions The History & Physical has been completed within 30 days and I have reviewed it.: No Section B Chief Complaint: Bladder-neck obstruction Details of Present Illness: Prior prostatectomy. Bladder neck obstruction. Plan for cystoscopy, bladder neck incision Relevant Family History (Specify if Yes): No Relevant Social History: None Present Medications: see Short Stay Collaborative assessment Medical History: Significant History History of Previous Operations: Relevant previous surgery/procedure and date(s) Allergies: Allergies Allergy/AdvReac Type Severity Reaction Status Date / Time levofloxacin Allergy Severe Difficulty Verified 12/30/22 14:37 Swallowing Review of Systems Sugical H&P ROS: Negative: Constitution, Cardiovascular, Respiratory, Neurological, Psychiatric, Hem-Onc, Allergic/Immunologic, Gastrointestinal, Genitourinary, Musculoskeletal, Integumentary, Endocrine and Eyes/Ears/Nose/Throat Exam Surgical H&P Exam: Normal: HEENT, Normal: Heart, Normal: Lungs, Normal: Extremities, Normal: Abdomen, Normal: Skin and Normal: Neurological Plan Diagnosis/Plan: Unchanged (Cystoscopy, bladder neck incision) I have reviewed the history and physical and performed a pertinent physical examination on my patient. No changes have occurred unless specified. Time Spent With Patient Time: Total time managing care of this patient today ____ minutes.
--- NOTE | 2022-12-30 17:56 | W.PM.OPN ---
Operative Note Operative Note Date of Service: 12/30/22 Narrative: PreOperative Diagnosis: Vesicourethral anastomotic stricture Post Operative Diagnosis: Vesico urethral anastomotic stricture Procedure: Dilation vesicourethral anastomotic stricture Surgeon: Dr Ronnell Pena Anesthesia: General Indications for procedure: Prior prostatectomy, vesicourethral anastomotic stricture, has had to use Martínez catheter to intermittently catheterize, unable to empty bladder. Apparent stricture has recurred. Procedure: After informed consent was verified the patient was brought to the operating room and placed in a supine position. Anesthesia was administered per protocol. The patient was prepped and draped in a sterile fashion. Safety pause time-out was performed. Antibiotics given. Modified lithotomy position 22 [place] cystoscope inserted per urethra. Dense stricture at the vesicourethral anastomosis. Cystoscope was able to be advanced into bladder. Stricture dilated. Decision made not to proceed with incision of stricture. This in all likelihood would in result with incontinence. Cystoscope removed 22 [place] Martínez catheter placed with 10 cc in balloon Patient tolerated procedure well. Extubated in operating room. Transferred in stable condition to the recovery area Pathology: Drains: Twenty-two [place] Martínez catheter
[2022-12-30 18:08] VITALS: BP 138/68; PULSE 93; RESP 16; TEMP 36.7; O2SAT 98
[2022-12-30 18:13] VITALS: BP 122/87; PULSE 87; RESP 16; TEMP 36.7; O2SAT 94
[2022-12-30 18:18] VITALS: BP 130/85; PULSE 84; RESP 16; TEMP 36.6; O2SAT 94
[2022-12-30 18:23] VITALS: BP 132/88; PULSE 84; RESP 18; O2SAT 94
== END 2022-12-30 18:28 | disposition home or self-care (01) ==
PROVIDERS: PCP Family Medicine; Visit Provider Urology
PROC: 0T9C8ZZ Drainage of Bladder Neck, Via Natural or Artificial Opening Endoscopic (ICD-10-PCS; CPT 52281; principal; 2022-12-30 15:50)
DX: N32.0 Bladder-neck obstruction (principal); N32.89 Other specified disorders of bladder; Z85.46 Personal history of malignant neoplasm of prostate; Z90.79 Acquired absence of other genital organ(s); Z87.442 Personal history of urinary calculi; I10 Essential (primary) hypertension; K21.9 Gastro-esophageal reflux disease without esophagitis; Z79.82 Long term (current) use of aspirin; Z79.899 Other long term (current) drug therapy
CPT/HCPCS: 52281; J0690; J2405; J3010

== ENCOUNTER → 2023-01-02 11:06 | Outpatient (BNVA) | payer BC, SELFPAY | PROVIDERS: PCP Family Medicine; Visit Provider Urology ==

== ENCOUNTER → 2023-02-12 10:41 | Outpatient (BNVA) | payer BC, SELFPAY | PROVIDERS: PCP Family Medicine; Visit Provider Urology | DX: C61 Malignant neoplasm of prostate (principal); N99.89 Other postprocedural complications and disorders of genitourinary system | CPT/HCPCS: 51798 ==

== ENCOUNTER 2023-09-03 08:15 | Outpatient (REF) | payer BC, SELFPAY ==
[2023-09-03 09:36] LABS: Prostate Specific Antigen 0.28 ng/mL (<0.05-4.0)
== END 2023-09-03 08:16 | disposition home or self-care (01) ==
LOC: HO.LAB 08:15
PROVIDERS: PCP Family Medicine; Visit Provider Urology
DX: Z12.5 Encounter for screening for malignant neoplasm of prostate (principal); C61 Malignant neoplasm of prostate
CPT/HCPCS: 36415; 84153

== ENCOUNTER 2023-09-17 11:13 | Outpatient (AMB) | payer BC, SELFPAY ==
--- NOTE | 2023-09-17 11:50 | MHC.OFFVIS ---
Intake Intake Visit Reasons: 6m/PSA(set) Intake Note: Patient is Present for Follow Up PSA Urology Medication: None Antibiotic Allergies: Levofloxacin Blood Thinners: Aspirin Allergies levofloxacin Allergy (Severe, Verified 09/17/23 11:57) Difficulty Swallowing Medication List - Last Reconciled 09/17/23 by Ronnell Pena MD aspirin (Adult Low Dose Aspirin) 81 mg PO DAILY famotidine 20 mg PO BID lisinopril 20 mg PO DAILY oxybutynin chloride ER 5 mg PO DAILY 30 days sulfamethoxazole-trimethoprim 800-160 mg (Bactrim DS) 1 tab PO BID 5 days HPI HPI Comments History of Present Illness Details Caesar is a pleasant male. He is a patient of Dr. Jesus. He is seen for the following urologic conditions - prostate cancer - nephrolithiasis - rising PSA - anastomotic stricture - bladder instability Follow-up on distal anastomotic stricture Using catheter 2 times per week to dilate Has helped with urinary flow Did have infection April 2023 Has been given self start antibiotics PSA continues to slowly rise Q 4 month follow-up Bladder instability with urgency minimal sensation Trial oxybutynin Prostate cancer 2009 radical prostatectomy with external beam radiation for rising PSA 2011 Initial therapy radical perineal prostatectomy Subsequent therapy includes radiation for rising PSA 2011 PSA - 11/10 0.11, 04/12 0.11, 10/14 0.1, 09/14 0.15, 06/14 0.17, 05/16 0.16, 11/14 0.22, 09/17 0.28 Started finasteride - which will alternate Prior history of anastomotic stricture requiring CIC 4 times a week ongoing for the foreseeable future This is to prevent recurrence of stricture Nephrolithiasis Prior history of nephrolithiasis Imaging - 06/14 CT multiple small stones right side, pelvis consistent with post prostatectomy Intervention - [facility] Medical History History of radiation therapy HTN (hypertension) GERD (gastroesophageal reflux disease) Renal stone Prostate cancer Surgical History Hx of radical prostatectomy Hx of cystoscopy Hx of lithotripsy Social History Alcohol intake: never Patient Tobacco Use Status: Never used Tobacco Review of Systems Const Denies chills and Denies fever(s) Card Reports no additional complaints and Denies syncope Resp Denies cough GI Denies abdominal pain and Denies heartburn Reports as per HPI and Denies change in libido Neuro Denies syncope Psych Denies change in libido Endo Denies change in libido Physical Exam Const General: cooperative, healthy appearing, comfortable and no acute distress Orientation/consciousness: patient oriented x3 HEENT Face and sinus: Yes normal facial exam Mouth: moist mucous membranes Neck Neck: Yes normal visual inspection, Yes full ROM and Yes trachea midline Chest Chest palpation & inspection: normal inspection of the chest Resp Effort & Inspection: normal respiratory effort, able to speak in complete sentences and no respiratory distress GI Inspection: Yes normal to inspection Back/Spine/Pelvis Cervical Spine: normal cervical lordosis Thoracic/Lumbar Spine: thoracic and lumbar spine normal to inspection Skin General skin exam: no rashes or lesions noted Neuro General: patient oriented x3, gait normal, tone normal and moves all extremities Extrem General: Yes normal to inspection and Yes capillary refill normal Assessment & Plan Assessment & Plan (1) Rising PSA following treatment for malignant neoplasm of prostate: Code(s): R97.21 - Rising PSA following treatment for malignant neoplasm of prostate (2) Anastomotic stricture of urinary tract: Code(s): N99.89 - Other postprocedural complications and disorders of genitourinary system (3) Prostate cancer: Comment: Perineal prostatectomy 2009, EXBRT 2011 Code(s): C61 - Malignant neoplasm of prostate (4) Bladder neck contracture: Code(s): N32.0 - Bladder-neck obstruction Plan Four month follow-up PSA Self start antibiotics Trial OAB meds Orders: Orders AMB Urinalysis Automated Today Z13.9 - Encounter for screening, unspecified Prostate Specific Antigen 4 Months C61 - Malignant neoplasm of prostate Medications: New sulfamethoxazole-trimethoprim 800-160 mg (Bactrim DS) To use if urinary tract infection 1 tab PO BID 10 tabs 0RF 5 days N39.0 - Urinary tract infection, site not specified oxybutynin chloride ER 5 mg PO DAILY 30 tabs 1RF 30 days N32.89 - Other specified disorders of bladder Patient Instructions: Imaging studies, laboratory and physical exam results were discussed and reviewed in detail. No major barriers to patient understanding were identified. An opportunity to ask questions regarding the treatment plan was provided. All questions were answered. The patient expressed understanding and agreement with the above treatment plan. The patient is aware they should contact our office by phone for worsening of their current condition or the appearance of new urologic symptoms. Compliance is encouraged with any medications and followup testing that is ordered. It is a privilege to participate in the urologic care of your patient. If you have any questions or concerns regarding treatment for the above conditions, or other urologic issues, please do not hesitate to contact me. The office telephone contact is [phone]. This note is constructed using voice recognition software. While every effort has been made to ensure accuracy blade groover errors may have been included. Yours sincerely, Dr Ronnell Pena MD, [facility] - Urology Providers of Expert, Compassionate Care for the Genitourinary System Coding Level of Care Code Est Pt Level 4 (23909) Diagnoses Rising PSA following treatment for malignant neoplasm of prostate R97.21 Anastomotic stricture of urinary tract N99.89 Prostate cancer C61 Bladder neck contracture N32.0
== END 2023-09-17 12:15 | disposition home or self-care (01) ==
PROVIDERS: PCP Family Medicine; Visit Provider Urology
DX: R97.21 Rising PSA following treatment for malignant neoplasm of prostate (principal); N99.89 Other postprocedural complications and disorders of genitourinary system; C61 Malignant neoplasm of prostate; N32.0 Bladder-neck obstruction
CPT/HCPCS: 99214

== ENCOUNTER → 2023-09-17 11:13 | Outpatient (BNVA) | payer BC, SELFPAY | PROVIDERS: PCP Family Medicine; Visit Provider Urology ==

== ENCOUNTER 2023-12-29 06:56 | Outpatient (REF) | payer BC, SELFPAY ==
[2023-12-29 08:40] LABS: Prostate Specific Antigen 0.34 ng/mL (<0.05-4.0)
== END 2023-12-29 06:57 | disposition home or self-care (01) ==
LOC: HO.LAB 06:56
PROVIDERS: PCP Family Medicine; Visit Provider Urology
DX: C61 Malignant neoplasm of prostate (principal); Z12.5 Encounter for screening for malignant neoplasm of prostate
CPT/HCPCS: 36415; 84153

== ENCOUNTER 2024-01-14 08:47 | Outpatient (AMB) | payer BC, SELFPAY ==
--- NOTE | 2024-01-14 08:48 | A.OFFVIS_ITS ---
Intake Visit Reasons: 4m/PSA(set) Intake Note: Patient is Present for Follow Up PSA Urology Medication: None Antibiotic Allergies: Levofloxacin Blood Thinners: Aspirin Flexible Babysitter Required: No Accompanied by: Self / Same As Patient Allergies levofloxacin Allergy (Severe, Verified 01/14/24 08:48) Difficulty Swallowing Medication List - Last Reconciled 01/14/24 by Ronnell Pena MD aspirin (Adult Low Dose Aspirin) 81 mg PO DAILY famotidine 20 mg PO BID lisinopril 20 mg PO DAILY oxybutynin chloride ER 5 mg PO DAILY 90 days sulfamethoxazole-trimethoprim 800-160 mg (Bactrim DS) 1 tab PO BID 5 days HPI Comments Details: Caesar is a pleasant male. He is a patient of Dr. Jesus. He is seen for the following urologic conditions - prostate cancer - nephrolithiasis - rising PSA - anastomotic stricture - bladder instability Telemedicine Evaluation 15 min Consultation [employer] Sarah Video Slow PSA rise continue with Q six-month visit Bladder instability with urgency minimal sensation Oxybutynin 5 mg helpful Would like to remain Six-month follow-up PVR Prostate cancer 2009 radical prostatectomy with external beam radiation for rising PSA 2011 Initial therapy radical perineal prostatectomy Subsequent therapy includes radiation for rising PSA 2011 PSA - 11/10 0.11, 04/12 0.11, 10/14 0.1, 09/14 0.15, 06/14 0.17, 05/16 0.16, 11/14 0.22, 09/17 0.28, 01/15 0.34 Started finasteride - which will alternate Prior history of anastomotic stricture requiring CIC 4 times a week ongoing for the foreseeable future This is to prevent recurrence of stricture Follow-up on distal anastomotic stricture Using catheter 2 times per week to dilate Has helped with urinary flow Did have infection April 2023 - Has been given self start antibiotics Nephrolithiasis Prior history of nephrolithiasis Imaging - 06/14 CT multiple small stones right side, pelvis consistent with post prostatectomy Intervention - prior [facility] Medical History History of radiation therapy HTN (hypertension) GERD (gastroesophageal reflux disease) Renal stone Prostate cancer Surgical History Hx of radical prostatectomy Hx of cystoscopy Hx of lithotripsy Social History Alcohol intake: never Patient Tobacco Use Status: Never used Tobacco Review of Systems Const All systems reviewed & are unremarkable except as noted in HPI and below Reports no additional complaints Resp Reports no additional complaints GI Reports no additional complaints Reports as per HPI Musc Reports no additional complaints Physical Exam Telemedicine evaluation Appropriate responses Regular breathing rate and rhythm HEENT Head: Yes normal to inspection Ears: hearing grossly normal bilaterally Eyes General: appearance normal, both eyes and all related structures Neck Neck: Yes normal visual inspection Chest Chest palpation & inspection: normal inspection of the chest Resp Effort & Inspection: normal respiratory effort and able to speak in complete sentences Telehealth Telehealth Telehealth Platform: [employer] Location of provider rendering services: practice address Location of patient: address on file Patient Identification confirmed using: Name, : Yes Telehealth method: video Patient verbally consented to treatment: Yes Patient verbally consented to billing insurance company: Yes Patient informed of any privacy concerns related to visit: Yes Minutes spent on Phone/Video with Pt.: 15 Assessment & Plan Assessment & Plan (1) Anastomotic stricture of urinary tract: Code(s): N99.89 - Other postprocedural complications and disorders of genitourinary system Category: Medical (2) Rising PSA following treatment for malignant neoplasm of prostate: Code(s): R97.21 - Rising PSA following treatment for malignant neoplasm of prostate Category: Medical (3) Bladder instability: Code(s): N32.89 - Other specified disorders of bladder Category: Medical (4) Prostate cancer: Comment: Perineal prostatectomy 2009, EXBRT 2011 Code(s): C61 - Malignant neoplasm of prostate Category: Medical Plan Six-month follow-up PVR Orders: Orders Prostate Specific Antigen 6 Months C61 - Malignant neoplasm of prostate Medications: Changed From oxybutynin chloride ER 5 mg PO DAILY 30 days 30 tabs 1RF N32.89 - Other specified disorders of bladder To oxybutynin chloride ER 5 mg PO DAILY 90 days 90 tabs 1RF N32.89 - Other specified disorders of bladder Patient Instructions: Imaging studies, laboratory and physical exam results were discussed and re viewed in detail. No major barriers to patient understanding were identified. An opportunity to ask questions regarding the treatment plan was provided. All questions were answered. The patient expressed understanding and agreement with the above treatment plan. The patient is aware they should contact our office by phone for worsening of their current condition or the appearance of new urologic symptoms. Compliance is encouraged with any medications and followup testing that is ordered. It is a privilege to participate in the urologic care of your patient. If you have any questions or concerns regarding treatment for the above conditions, or other urologic issues, please do not hesitate to contact me. The office telephone contact is [phone]. This note is constructed using voice recognition software. While every effort has been made to ensure accuracy shot examiner errors may have been included. Yours sincerely, Dr Ronnell Pena MD, [facility] - Urology Providers of Expert, Compassionate Care for the Genitourinary System Coding Level of Care Code Tele Est Pt Level 3 (49740) Diagnoses Anastomotic stricture of urinary tract N99.89 Rising PSA following treatment for malignant neoplasm of prostate R97.21 Bladder instability N32.89 Prostate cancer C61
== END 2024-01-14 09:07 | disposition home or self-care (01) ==
LOC: HO.HUSH 08:47
PROVIDERS: PCP Family Medicine; Visit Provider Urology
DX: N99.89 Other postprocedural complications and disorders of genitourinary system (principal); R97.21 Rising PSA following treatment for malignant neoplasm of prostate; N32.89 Other specified disorders of bladder; C61 Malignant neoplasm of prostate
CPT/HCPCS: 99213

== ENCOUNTER → 2024-01-14 08:47 | Outpatient (BNVA) | payer BC, SELFPAY | PROVIDERS: PCP Family Medicine; Visit Provider Urology ==

== ENCOUNTER 2024-07-07 08:56 | Outpatient (REF) | payer BC, SELFPAY ==
[2024-07-07 10:29] LABS: Prostate Specific Antigen 0.48 ng/mL (<0.05-4.0)
== END 2024-07-07 08:57 | disposition home or self-care (01) ==
LOC: HO.LAB 08:56
PROVIDERS: PCP Family Medicine; Visit Provider Urology
DX: Z12.5 Encounter for screening for malignant neoplasm of prostate (principal); C61 Malignant neoplasm of prostate
CPT/HCPCS: 36415; 84153

== ENCOUNTER 2024-07-13 11:16 | Outpatient (AMB) | payer BC, SELFPAY ==
--- NOTE | 2024-07-13 11:50 | MHC.OFFVIS ---
Intake Visit Reasons: 6M PSA(set) Intake Note: Patient is present for PSA Follow up Urology Med: Oxybutynin, Antibiotic Allergy: Levofloxacin Blood Thinner: Aspirin PSA- 07/07/24- 0.48 Last PVR:0ML Patient states that he is doing good on oxybutynin, does feel improvement Only on Bactrim when needed. Patient reports some leakage while he is on his feet working 8hrs Family Practice Md Required: No Accompanied by: Self / Same As Patient Allergies levofloxacin Allergy (Severe, Verified 07/13/24 11:57) Difficulty Swallowing HPI Comments Details: Caesar is a pleasant male. He is a patient of Dr. Jesus. He is seen for the following urologic conditions - prostate cancer - nephrolithiasis - rising PSA - anastomotic stricture - bladder instability Slow PSA rise continue with Q six-month visit Bladder instability with urgency minimal sensation Oxybutynin 5 mg helpful Would like to remain Six-month follow-up PVR Prostate cancer 2009 radical prostatectomy with external beam radiation for rising PSA 2011 Initial therapy radical perineal prostatectomy Subsequent therapy includes radiation for rising PSA 2011 PSA - 11/10 0.11, 04/12 0.11, 10/14 0.1, 09/14 0.15, 06/14 0.17, 05/16 0.16, 11/14 0.22, 09/17 0.28, 01/15 0.34, 07/18 0.48 Started finasteride - which will alternate Prior history of anastomotic stricture requiring CIC 4 times a week ongoing for the foreseeable future This is to prevent recurrence of stricture Follow-up on distal anastomotic stricture Using catheter 2 times per week to dilate Has helped with urinary flow Did have infection April 2023 - Has been given self start antibiotics Nephrolithiasis Prior history of nephrolithiasis Imaging - 06/14 CT multiple small stones right side, pelvis consistent with post prostatectomy Intervention - prior E[facility] Medical History History of radiation therapy HTN (hypertension) GERD (gastroesophageal reflux disease) Renal stone Prostate cancer Surgical History Hx of radical prostatectomy Hx of cystoscopy Hx of lithotripsy Social History Alcohol intake: never Patient Tobacco Use Status: Never used Tobacco Review of Systems Const Denies chills and Denies fever(s) Card Reports no additional complaints and Denies syncope Resp Denies cough GI Denies abdominal pain and Denies heartburn Reports as per HPI and Denies change in libido Neuro Denies syncope Psych Denies change in libido Endo Denies change in libido Physical Exam Const General: cooperative, healthy appearing, comfortable and no acute distress Orientation/consciousness: patient oriented x3 HEENT Face and sinus: Yes normal facial exam Mouth: moist mucous membranes Neck Neck: Yes normal visual inspection, Yes full ROM and Yes trachea midline Chest Chest palpation & inspection: normal inspection of the chest Resp Effort & Inspection: normal respiratory effort, able to speak in complete sentences and no respiratory distress GI Inspection: Yes normal to inspection Back/Spine/Pelvis Cervical Spine: normal cervical lordosis Thoracic/Lumbar Spine: thoracic and lumbar spine normal to inspection Skin General skin exam: no rashes or lesions noted Neuro General: patient oriented x3, gait normal, tone normal and moves all extremities Extrem General: Yes normal to inspection and Yes capillary refill normal Assessment & Plan Assessment & Plan (1) Prostate cancer: Comment: Perineal prostatectomy 2009, EXBRT 2011 Code(s): C61 - Malignant neoplasm of prostate Category: Medical (2) Rising PSA following treatment for malignant neoplasm of prostate: Code(s): R97.21 - Rising PSA following treatment for malignant neoplasm of prostate Category: Medical Plan slowly rising PSA Orders: Orders Prostate Specific Antigen 6 Months R97.21 - Rising PSA following treatment for malignant neoplasm of prostate Patient Instructions: Imaging studies, laboratory and physical exam results were discussed and reviewed in detail. No major barriers to patient understanding were identified. An opportunity to ask questions regarding the treatment plan was provided. All questions were answered. The patient expressed understanding and agreement with the above treatment plan. The patient is aware they should contact our office by phone for worsening of their current condition or the appearance of new urologic symptoms. Compliance is encouraged with any medications and followup testing that is ordered. It is a privilege to participate in the urologic care of your patient. If you have any questions or concerns regarding treatment for the above conditions, or other urologic issues, please do not hesitate to contact me. The office telephone contact is [phone]. This note is constructed using voice recognition software. While every effort has been made to ensure accuracy feed mill manager errors may have been included. Yours sincerely, Dr Ronnell Pena MD, [facility] - Urology Providers of Expert, Compassionate Care for the Genitourinary System Coding Level of Care Code Est Pt Level 3 (58894) Diagnoses Prostate cancer C61 Rising PSA following treatment for malignant neoplasm of prostate R97.21
== END 2024-07-13 12:31 | disposition home or self-care (01) ==
PROVIDERS: PCP Family Medicine; Visit Provider Urology
DX: C61 Malignant neoplasm of prostate (principal); R97.21 Rising PSA following treatment for malignant neoplasm of prostate
CPT/HCPCS: 99213

== ENCOUNTER → 2024-07-13 11:16 | Outpatient (BNVA) | payer BC, SELFPAY | PROVIDERS: PCP Family Medicine; Visit Provider Urology ==

== ENCOUNTER 2024-12-23 07:10 | Outpatient (REF) | payer BC, SELFPAY ==
[2024-12-23 08:25] LABS: Prostate Specific Antigen 0.72 ng/mL (<0.05-4.0)
== END 2024-12-23 07:11 | disposition home or self-care (01) ==
LOC: HO.LAB 07:10
PROVIDERS: PCP Family Medicine; Visit Provider Urology
DX: R97.21 Rising PSA following treatment for malignant neoplasm of prostate (principal); Z12.5 Encounter for screening for malignant neoplasm of prostate
CPT/HCPCS: 36415; 84153

== ENCOUNTER 2025-01-12 13:07 | Outpatient (AMB) | payer BC, SELFPAY ==
--- NOTE | 2025-01-12 13:07 | MHC.OFFVIS ---
Intake Visit Reasons: 6m/PSA Intake Note: Patient is present for 6M/PSA Urology Medication:OXYBUTYNIN Antibiotic Allergy:LEVOFLOXACIN Blood Thinner:ASPIRIN Library Cataloging Technician Required: No Allergies levofloxacin Allergy (Severe, Verified 01/12/25 13:08) Difficulty Swallowing HPI Comments Details: Caesar is a pleasant male. He is a patient of Dr. Jesus. He is seen for the following urologic conditions - prostate cancer - nephrolithiasis - rising PSA - anastomotic stricture - bladder instability Telemedicine Evaluation 15 min Consultation [employer] Sarah Video Slow PSA rise continue with Q six-month visit - PSAD 12 months Bladder instability with urgency minimal sensation Oxybutynin 5 mg helpful Six-month follow-up PVR Prostate cancer 2009 radical prostatectomy with external beam radiation for rising PSA 2011 Initial therapy radical perineal prostatectomy Subsequent therapy includes radiation for rising PSA 2011 PSA - 11/10 0.11, 04/12 0.11, 10/14 0.1, 09/14 0.15, 06/14 0.17, 05/16 0.16, 11/14 0.22, 09/17 0.28, 01/15 0.34, 07/18 0.48, 01/16 0.7 Started finasteride - which will alternate Prior history of anastomotic stricture requiring CIC 4 times a week ongoing for the foreseeable future This is to prevent recurrence of stricture Follow-up on distal anastomotic stricture Using catheter 2 times per week to dilate Has helped with urinary flow Did have infection April 2023 - Has been given self start antibiotics Nephrolithiasis Prior history of nephrolithiasis Imaging - 06/14 CT multiple small stones right side, pelvis consistent with post prostatectomy Intervention - prior [facility] Medical History History of radiation therapy HTN (hypertension) GERD (gastroesophageal reflux disease) Renal stone Prostate cancer Surgical History Hx of radical prostatectomy Hx of cystoscopy Hx of lithotripsy Social History Alcohol intake: never Patient Tobacco Use Status: Never used Tobacco Review of Systems Const All systems reviewed & are unremarkable except as noted in HPI and below Reports no additional complaints Resp Reports no additional complaints GI Reports no additional complaints Reports as per HPI Musc Reports no additional complaints Physical Exam Telemedicine evaluation Appropriate responses Regular breathing rate and rhythm HEENT Head: Yes normal to inspection Ears: hearing grossly normal bilaterally Eyes General: appearance normal, both eyes and all related structures Neck Neck: Yes normal visual inspection Chest Chest palpation & inspection: normal inspection of the chest Resp Effort & Inspection: normal respiratory effort and able to speak in complete sentences Telehealth Telehealth Telehealth Platform: [employer] Location of provider rendering services: practice address Location of patient: address on file Patient Identification confirmed using: Name, : Yes Telehealth method: video Patient verbally consented to treatment: Yes Patient verbally consented to billing insurance company: Yes Patient informed of any privacy concerns related to visit: Yes Minutes spent on Phone/Video with Pt.: 15 Assessment & Plan Assessment & Plan (1) Prostate cancer: Comment: Perineal prostatectomy 2009, EXBRT 2011 Code(s): C61 - Malignant neoplasm of prostate Category: Medical (2) Rising PSA following treatment for malignant neoplasm of prostate: Code(s): R97.21 - Rising PSA following treatment for malignant neoplasm of prostate Category: Medical (3) Bladder instability: Code(s): N32.89 - Other specified disorders of bladder Category: Medical Plan Six-month follow-up PSA office Orders: Orders Prostate Specific Antigen 6 Months N32.89 - Other specified disorders of bladder Patient Instructions: This note is constructed using voice recognition software. While every effort has been made to ensure accuracy painter and body mechanic apprentice errors may have been included. Imaging studies, laboratory and physical exam results were discussed and reviewed in detail. No major barriers to patient understanding were identified. An opportunity to ask questions regarding the treatment plan was provided. All questions were answered. The patient expressed understanding and agreement with the above treatment plan. The patient is aware they should contact our office by phone for worsening of their current condition or the appearance of new urologic symptoms. Compliance is encouraged with any medications and followup testing that is ordered. It is a privilege to participate in the urologic care of your patient. If you have any questions or concerns regarding treatment for the above conditions, or other urologic issues, please do not hesitate to contact me. The office telephone contact is [phone]. Sincerely, Dr Ronnell Pena MD, [facility] - Urology Compassionate Specialist Care for the Genitourinary System Coding Level of Care Code Tele Est Pt Level 3 (28570) Complex EM visit Add On [id number] Diagnoses Prostate cancer C61 Rising PSA following treatment for malignant neoplasm of prostate R97.21 Bladder instability N32.89
== END 2025-01-12 14:26 | disposition home or self-care (01) ==
LOC: HO.HUSH 13:07
PROVIDERS: PCP Family Medicine; Visit Provider Urology
DX: C61 Malignant neoplasm of prostate (principal); R97.21 Rising PSA following treatment for malignant neoplasm of prostate; N32.89 Other specified disorders of bladder
CPT/HCPCS: 99213

== ENCOUNTER 2025-06-17 06:20 | Outpatient (REF) | payer BC, SELFPAY ==
--- OUTSIDE RECORDS SUMMARY | 2025-06-17 06:23 | XMS_ITS | Encounter Summary ---
Author Organization [facility] Address [address] [facility] [address] [place] [address] Phone Care Team Providers Care Water Resource Manager Name Role Phone Tomás Montalvo MD Primary Care Provider [phone] Encounter Details Date Type Department Care Team (Late st Contact Info) Description 03/24/2025 Procedure Pass [facility], [address] [address] Social History Tobacco Use Types Packs/Day Years Used Date Smoking Tobacco: Never Smokeless Tobacco: Never Alcohol Use Standard Drinks/Week Comments Never 0 (1 standard drink = 0.6 oz pur e alcohol) Education Answer Date Recorded Are you interested in more education? Not on jose ramon e 12/20/2022 Are you concerned about learning? Not on file 12/20/2022 No 12/20/2022 No 12/20/2022 Food Answer Date Recorded Within the past 6 months we worried whether our food would run out before we got money to buy more. Never True 03/12/2025 Within the past 6 months the food we bought just didn't last and we didn't have enough money to get more. Never True Residential Stability Answer Date Recor ded What is your housing situation today? I have mohsen denise 03/12/2025 How many times have you move d in the past 12 months? Zero (I did not move) 03/12/2025 Paying for Meds Answer Date Recorded Do you have trouble paying for medicines? No 03/12/2025 Paying Utility Bills Answer Date Record ed Do you have trouble paying your heating or elect ricity bill? No 03/12/2025 Transportation Answer Date Recorded Has the lack of transportati on kept you from medical appointments or from getting medications? No 03/12/2025 Digital Access Answer Date Recorded Yes 03/12/2025 No 03/12/2025 Do you have reliable internet access at home? No 03/12/2025 Do you have a device (e.g., phone, tablet, computer) with a working camera? No 03/12/2025 Intimate Partner Violence Answer Date R ecorded Are you denied basic needs s uch as food, clothing, or medical care? No 03/12/2025 In the past 12 months have y ou been in a relationship with a person who hurts, threatens, or tries to control you? No 03/12/2025 Are you denied basic needs s uch as food, clothing, or medical care? No 03/12/2025 In the past 12 months have y ou been in a relationship with a person who hurts, threatens, or tries to control you? No 03/12/2025 Sex and Gender Information Value Date Recorded Sex Assigned at Male 07/29/2019 7:47 AM EST Legal Sex Male 9:52 PM EDT Gender Identity Male 07/29/2019 7:47 AM EST Sexual Orientation Not on file documented as of this encounter Plan of Treatment Upcoming Encounters Date Type Department Care Team (Late st Contact Info) Description 06/22/2025 8:00 AM EDT Office Visit [facility] [address] [place] [address] Unknown, Unknown, Pamela Merino, OPTOMETRIC ASSISTANT [address] [place] [phone] [email or web address] documented as of this encounter Visit Diagnoses Not on filedocumented in this encounter Care Teams Water Resource Manager Relationship Specialty Start Date End Date Tomás Montalvo MD [address] [place] [phone] [email or web address] PCP - General Family Medicine 10/19/23 documented as of this encounter Additional Source Comments The information contained in this document represents components of the legal health record. It is not the complete legal health record.[facility]
--- OUTSIDE RECORDS SUMMARY | 2025-06-17 06:23 | XMS_ITS | Clinical Summary ---
Author Organization [facility] Address [address] [facility] [address] [place] [address] Phone Care Team Providers Care Vault Service Mechanic Name Role Phone Jae Valle MD Primary Care Provider [phone] Allergies Active Allergy Reactions Criticality Noted Date Comments Cephalexin 03/12/2025 Medications lisinopril (PRINIVIL,ZESTR IL) 10 MG tablet Take 10 mg by mouth daily. Active omeprazole (PRILOSEC) 20 MG capsule Take 20 mg by mouth daily. Active ibuprofen (ADVIL,MOTRIN) 600 MG tablet Take 1 tablet (600 mg total) by mouth every 6 (six) hours as needed for pain (specific location in comments) or fever. 20 tablet 08/25/2020 Active cyclobenzaprine (FLEXERIL) 10 MG tablet Take 1 tablet (10 mg total) by mouth 3 (three) times a day as needed. 20 tablet 09/28/2021 Active tamsulosin (FLOMAX) 0.4 mg Cap Take 1 capsule (0.4 mg total) by mouth nightly at bedtime for 14 days. 14 capsule 07/17/2022 Active benzonatate (TESSALON) 100 MG capsule Take 1 capsule (100 mg total) by mouth 3 (three) times a day as needed for cough. 20 capsule 10/19/2023 Active famotidine (PEPCID) 20 MG tablet Take 1 tablet by mouth 2 (two) times a day. 08/22/2023 Active oxyBUTYnin (DITROPAN-XL) 5 MG 24 hr tablet Take 1 tablet by mouth every morning. 09/17/2023 Active Active Problems Problem Noted Date Diagnosed Date Ischemic colitis 10/12/2021 Colitis 10/11/2021 Assessment & Plan (10/11/2021 2:56 PM EST): He presents to the emergency department with acute onset abdominal pain, diaphoresis, diarrhea and rectal bleeding. CT imaging shows colitis involving the distal transverse, descending and sigmoid colon. History is suspicious for bowel ischemia with reperfusion injury though differential would include infectious colitis and less likely inflammatory bowel disease. He has been afebrile with a normal white blood cell count. CTA of the abdomen did not show any signs of arterial occlusion or extravasation of contrast. Doubt upper GI source of bleeding. Abdominal exam is quite benign and reassuring --Has been n.p.o., will advance diet to clears --Send stool sampling for C. difficile, routine culture --Trend H/H --GI consultation. He did have an EGD and colonoscopy within the last [address] Rome --May consider adding antibiotics, but not sure how much this will add given absence of fever, leukocytosis, or more concerning exam findings HTN (hypertension) 10/11/2021 Assessment & Plan (10/11/2021 2:56 PM EST): Controlled --Continue lisinopril per home regimen Prostate cancer 10/11/2021 Assessment & Plan (10/11/2021 2:58 PM EST): He was treated for prostate cancer approximately 10 years ago, then developed dysuria. His urologist is Dr. Pena in [place]. He underwent a procedure in August to dilate the urethra . Since this time he has had some urinary incontinence, but the dysuria has resolved --No new concerns. He is due to see Dr. Pena this week Encounters Date Type Department Care Team Description 05/08/2025 3:41 PM EDT - 05/08/2025 11:59 PM EDT Hospital Encounter [address] [address] Jae Valle MD Discharge Disposition: Home or Self Care 03/24/2025 Procedure Pass [address] [address] 03/24/2025 Transcribe Orders Virtual Department [address] [place] [address] Jae Valle MD Frequent headaches (Primary Dx) from Last 3 Months Social History Tobacco Use Types Packs/Day Years [...] your housing situation today? I have mohsen sing 03/12/2025 How many times have you move [...] AM EST Sexual Orientation Not on file Last Filed Vital Signs Vital Sign Reading Time Taken Comments Blood Pressure 120/84 03/12/2025 8:25 AM EDT Pulse 83 03/12/2025 8:25 AM EDT Temperature 36.3 C (97.3 F) 03/12/2025 8:25 AM EDT Respiratory Rate 15 03/12/2025 8:25 AM EDT Oxygen Saturation 97% 03/12/2025 8:25 AM EDT Inhaled Oxygen Concentration - - Weight 90.7 kg (200 lb) 04/15/2025 6:19 PM EDT Height 177.8 cm (5' 10 ) 04/15/2025 6:19 PM EDT Body Mass Index 28.7 04/15/2025 6:19 PM EDT Plan of Treatment Upcoming Encounters Date Type Department Care Team (Late st Contact Info) Description 06/22/2025 8:00 AM EDT Office Visit [facility] [address] [place] [phone] Unknown, Unknown, Pamela Merino, AIRLINE RESERVATION AGENT [address] [place] [address] [email or web address] Health Maintenance Due Date Last Done Comments BLOOD PRESSURE 1955 LIPID PANEL 1957 DEPRESSION SCREENING 1969 HEPATITIS C SCREENING 1975 PNEUMOCOCCAL VACCINES (50+ years) (1 of 2 - PCV) 1976 COLOGUARD 2002 FIT TEST 2002 FOBT 2002 SIGMOIDOSCOPY 2002 VIRTUAL COLONOSCOPY 2002 INFLUENZA VACCINE (#1) 2025 0, 07/12/2019, 07/10/2018, Additional history exists COVID-19 VACCINE (3 - 2024- season) 2025 12/15/2020, 11/24/2020 CREATININE LEVEL 03/12/2026 03/12/2025, , 10/12/2021, Additional history exists POTASSIUM LEVEL 03/12/2026 03/12/2025, 06/26, 10/12/2021, Additional history exists SCREENING FOR DIABETES 03/12/2028 03/12/2025 Adult Td,Tdap Booster 07/12/2029 07/12/2019, 009 COLONOSCOPY 10/13/2029 10/13/2019 COLORECTAL CANCER SCREENING 10/13/2029 RSV VACCINE (1 - 1-dose 75+ series) 2032 ZOSTER VACCINES Completed 07/02/2021, 03/26, 04/20/2015 SMOKING STATUS SCREENING (Once After 26 Yrs) Completed 03/12/2025 HEPATITIS A VACCINES Aged Out No long er eligible based on patient's age to complete this topic HIB VACCINES Aged Out No longer eligi ble based on patient's age to complete this topic MENINGOCOCCAL VACCINES (ACWY) Aged Out No longer eligible based on patient's age to complete this topic MENINGOCOCCAL VACCINES (B) Aged Out N o longer eligible based on patient's age to complete this topic Medical Devices Implanted Type Area Manager Business Banking Device Identifier Shelf Expiration Date Model / Serial / Lot [place] Prostate Removal Procedures Procedure Name Priority Date/Time Associated Diagnosis Comments MRI BRAIN WITH AND WITHOUT CONTRAST Routine 05/08/2025 6:37 PM EDT Frequent headaches BASIC METABOLIC PANEL STAT 03/12/2025 5:58 AM EDT ENDOSCOPY, COLON 10/13/2019 8:12 AM EST from Last 3 Months or Most Recently Relevant to Health Maintenance Results * MRI BRAIN WITH AND WITHOUT CONTRAST (05/08/2025 6:37 PM EDT) Anatomical Region Laterality Modality Head Magnetic Resonan ce 05/09/2025 3:01 PM EDT Impressions 05/09/2025 3:06 PM EDT 1. No acute intracranial abnormality. No acute infarct, hemorrhage, or abnormal enhancement. Narrative 05/09/2025 3:06 PM EDT MRI BRAIN WITH AND WITHOUT CONTRAST Referring clinician's provided indication for this examination in [facility]: * Headache, chronic, new features or increased frequency; Outside Radiology Order TECHNIQUE: MRI BRAIN WITH AND WITHOUT CONTRAST Multi-sequence, multi-planar MRI of the brain was performed before and after intravenous contrast. COMPARISON: No prior brain studies. FINDINGS: Brain Parenchyma: Possible minimal periventricular T2 hyperintensities, probably sequela of chronic small vessel changes. Otherwise no significant signal abnormality detected in the brain. No diffusion restriction or acute infarct. No hemorrhage or mass effect. No abnormal brain parenchymal enhancement. Ventricular System and Extra-Axial Spaces: No hydrocephalus, midline shift, or extra-axial fluid collection. Extracranial Structures: Expected arterial flow signal is observed at the skull base. Partial opacification of the right middle turbinate analia bullosa. Bones and extracranial soft tissues are unremarkable. Procedure Note Christelle Merrill MD - 05/09/2025 MRI BRAIN WITH AND WITHOUT CONTRAST Referring clinician's provided indication for this examination in [facility]: *Headache, chronic, new features or increased frequency; Outside RadiologyOrder TECHNIQUE: MRI BRAIN WITH AND WITHOUT CONTRAST Multi-sequence, multi-planar MRI of the brain was performed before andafter intravenous contrast. COMPARISON: No prior brain studies. FINDINGS: Brain Parenchyma: Possible minimal periventricular T2 hyperintensities,probably sequela of chronic small vessel changes. Otherwise no significantsignal abnormality detected in the brain. No diffusion restriction oracute infarct. No hemorrhage or mass effect. No abnormal brain parenchymalenhancement. Ventricular System and Extra-Axial Spaces: No hydrocephalus, midlineshift, or extra-axial fluid collection. Extracranial Structures: Expected arterial flow signal is observed at theskull base. Partial opacification of the right middle turbinate conchabullosa. Bones and extracranial soft tissues are unremarkable. IMPRESSION: 1. No acute intracranial abnormality. No acute infarct, hemorrhage, orabnormal enhancement. Jae Valle MD IMG MR HEAD/NECK Final Resu lt * (ABNORMAL) Basic metabolic panel (03/12/2025 5:58 AM EDT) SODIUM 137 133 - 146 mmol/L [facility] CHLORIDE 100 96 - 108 mmol/L [facility] POTASSIUM 3.9 3.3 - 5.1 mmol/L [facility] CO2 24 21 - 35 mmol/L [facility] BUN 15 6 - 19 mg/dL [facility] CREATININE 0.90 0.5 - 1.5 mg/dL [facility] GLUCOSE 122(H) 70 - 99 mg/dL [facility] CALCIUM 9.5 8.4 - 10.3 mg/dL [facility] EGFR 94 >59 mL/min/1.7 3m2 [facility] Comment:Estimated glomerular filtration rate calculated using the CKD-EPI refit equation. ANION GAP 17 10 - 20 mmol/L [facility] Blood 03/12/2025 5:58 AM EDT 03/12/2025 6:03 AM EDT us Collins Shell MD LAB BLOOD ORDERABLES Final Resul t [facility] [address] [place] [address] * ENDOSCOPY, COLON (10/13/2019 8:12 AM EST) Narrative Transcriptions Kishan Rome MD - 10/13/2019 8:12 AM EST Patient Name: Caesar Turcios MD:: KISHAN ROME MD Procedure Date: 10/13/2019 8:12 AM Date of : 1955 Age: 64 Admit Type: Outpatient Gender: Male Room: [facility] Referring MD: JAE VALLE MD Exam Type: Colonoscopy Indications: Screening for colorectal malignant neoplasm, Last colonoscopy: July 2009 Medications: Monitored Anesthesia Care Procedure: Informed consent was obtained from the patient after discussion of the indications, limitations,alternatives, benefits, and risks of the procedure. Risksspecifically discussed include but are not limited to medication reactions, missed lesions, bleeding, perforation, orthe need for emergent surgery. Throughout the procedure, the patient's blood pressure, pulse, end-tidal CO2, and oxygen saturations were monitored continuously. The Olympus pediatric variable colonoscope [id number]-[id number] was introduced through the anus and advanced to thececum, identified by the appendiceal orifice, ileocecal valveand palpation. The colonoscopy was somewhat difficult dueto a redundant colon. Successful completion of the procedure was aided by applying abdominal pressure. The patient tolerated the procedure fairly well. The quality of the bowel preparation was evaluated using the BBPS ([place] Bowel Preparation Scale) with scores of: Right Colon =2 (minor amount of residual staining, small fragments of stool and/or opaque liquid, but mucosa seen well), Transverse Colon = 2 (minor amount of residualstaining, small fragments of stool and/or opaque liquid, butmucosa seen well) and Left Colon = 2 (minor amount of residual staining, small fragments of stool and/or opaqueliquid, but mucosa seen well). The total BBPS score equals 6. Complications: No immediate complications. Estimated blood loss:None. Findings: Skin tags were found on perianal exam. The colon (entire examined portion) was moderately redundant. A moderate amount of semi-liquid stool was found in the sigmoid colon, at the hepatic flexure and in theascending colon, making visualization difficult. Retroflexion in the right colon was performed. Non-bleeding internal hemorrhoids were found during retroflexion. The hemorrhoids were moderate. The exam was otherwise without abnormality on directand retroflexion views. Impression: - Perianal skin tags found on perianal exam. - Redundant colon. - Stool in the sigmoid colon, at the hepatic flexureand in the ascending colon. - Non-bleeding internal hemorrhoids. - The examination was otherwise normal on direct and retroflexion views. - No specimens collected. Recommendation: - Repeat colonoscopy in 10 years for screeningpurposes. KISHAN ROME MD 10/13/2019 8:41:35 AM This report has been signed electronically. Number of Addenda: 0 Note Initiated On: 10/13/2019 8:12 AM Procedure Code(s): --- Professional --- 62933, Colonoscopy, flexible; diagnostic, including collection of specimen(s) by brushing or washing, when performed (separateprocedure) --- Technical --- 70852, Colonoscopy, flexible; diagnostic, including collection of specimen(s) by brushing or washing, when performed (separateprocedure) Diagnosis Code(s): --- Professional --- Z12.11, Encounter for screening for malignant neoplasm of colon K64.8, Other hemorrhoids K64.4, Residual hemorrhoidal skin tags Q43.8, Other specified congenital malformations of intestine --- Technical --- Z12.11, Encounter for screening for malignant neoplasm of colon K64.8, Other hemorrhoids K64.4, Residual hemorrhoidal skin tags Q43.8, Other specified congenital malformations of intestine CPT copyright 2018 [employer]. All rights reserved. The codes documented in this report are preliminary and upon news specialist reviewmay be revised to meet current compliance requirements. Procedure Date: 10/13/2019 8:12:[address] [place] [phone] Jae Valle MD GI PROCEDURE ORDERABLES Fin al Result from Last 3 Months or Most Recently Relevant to Health Maintenance Insurance [facility] OUT OF STATE PPO Care Teams Vault Service Mechanic Relationship Specialty Start Date End Date Jae Valle MD [address] [place] [phone] [email or web address] PCP - General Family Medicine 10/19/23 Additional Source Comments The information contained in this document represents components of the legal health record. It is not the complete legal health record.[facility]
--- OUTSIDE RECORDS SUMMARY | 2025-06-17 06:23 | XMS_ITS | Encounter Summary ---
Author Organization [facility] Address [address] [facility] [address] [place] [address] Phone Care Team Providers Care Quill Machine Tender Name Role Phone Tomás Montalvo MD Primary Care Provider [phone] Tomás Montalvo MD Primary Care Provider [phone] Encounter Details Date Type Department Care Team (Late Contact Info) Description 05/10/2020 Procedure Pass [facility] Endoscopy Admitting Dept Virtual Department [address] [place] [phone] Social History Tobacco Use Types Packs/Day Years Used Date Smoking Tobacco: Never Smokeless Tobacco: Never Alcohol Use Standard Drinks/Week Comments Never 0 (1 standard drink = 0.6 oz pur e alcohol) Sex and Gender Information Value Date Recorded Sex Assigned at Male 07/29/2019 7:47 AM EST Legal Sex Male 9:52 PM EDT Gender Identity Male 07/29/2019 7:47 AM EST Sexual Orientation Not on file documented as of this encounter Plan of Treatment Upcoming Encounters Date Type Department Care Team (Late Contact Info) Description 06/22/2025 8:00 AM EDT Office Visit [facility] [address] [place] [phone] Unknown, Unknown, Pamela Merino, BURRITO MAKER [address] [place] [address] documented as of this encounter Visit Diagnoses Not on filedocumented in this encounter Additional Health Concerns Infection Onset Date Last Indicated Resolved Time CoV-Risk 10/19/2023 10/19/2023 10/30/2023 1:22 AM EST documented as of this encounter Care Teams Quill Machine Tender Relationship Specialty Start Date End Date Tomás Montalvo MD [email or web address] PCP - General Family Medicine 07/29/19 10/18/23 Tomás Montalvo MD [address] [place] [phone] [email or web address] PCP - General Family Medicine 10/19/23 documented as of this encounter Additional Source Comments The information contained in this document represents components of the legal health record. It is not the complete legal health record.[facility]
--- OUTSIDE RECORDS SUMMARY | 2025-06-17 06:23 | XMS_ITS | Encounter Summary ---
Author Organization [facility] Address [address] [facility] [address] [place] [phone] Phone Care Team Providers Care Machine Stitcher Name Role Phone Tomás Montalvo MD Primary Care Provider [phone] Tomás Montalvo MD Primary Care Provider [phone] Encounter Details Date Type Department Care Team (Late Contact Info) Description 10/13/2019 Procedure Pass [facility] Endoscopy Admitting Dept Virtual Department [address] [place] [phone] Social History Tobacco Use Types Packs/Day Years [...] Description 06/22/2025 8:00 AM EDT Office Visit [facility] [address] [place] [address] Unknown, Unknown, Pamela Merino, VOICE OVER ARTIST [address] [place] [phone] documented as of this encounter Visit Diagnoses Not on filedocumented in this encounter Additional Health Concerns Infection Onset Date Last Indicated Resolved Time CoV-Risk 10/19/2023 10/19/2023 10/30/2023 1:22 AM EST documented as of this encounter Care Teams Machine Stitcher Relationship Specialty Start Date End Date Tomás Montalvo MD [email or web address] PCP - General Family Medicine 07/29/19 10/18/23 Tomás Montalvo MD [address] [place] [phone] [email or web address] PCP - General Family Medicine 10/19/23 documented as of this encounter Additional Source Comments The information contained in this document represents components of the legal health record. It is not the complete legal health record.[facility]
--- OUTSIDE RECORDS SUMMARY | 2025-06-17 06:23 | XMS_ITS | Encounter Summary ---
Author Organization [facility] Address [address] [facility] [address] [place] [phone] Phone Care Team Providers Care Recycling Sorter Name Role Phone Tomás Montalvo MD Primary Care Provider [phone] Reason for Referral * MRI/CAT Scan - Closed Specialty Diagnoses / Procedures Referred By Karla mccurdy Referred To Contact Radiology Diagnoses Frequent headaches Procedures MRI Brain Tomás Montalvo MD [address] [place] [address] Phone: tel: fax: [email or web address] Referral ID Status Reason Start Date Expiration Date Visits Re quested Visits Authorized [id number] Closed 03/24/2025 03/24/2026 1 1 Encounter Details Date Type Department Care Team (Late st Contact Info) Description 03/24/2025 Transcribe Orders Virtual Department [address] [place] [address] Tomás Montalvo MD [address] [place] [phone] [email or web address] Frequent headaches (Primary Dx) Social History Tobacco Use Types Packs/Day Years [...] Description 06/22/2025 8:00 AM EDT Office Visit [facility] [address] [place] [phone] Unknown, Unknown, Pamela Mreino, BRAND AMBASSADOR PROMOTIONAL MODEL [address] [place] [phone] [email or web address] documented as of this encounter Results * MRI BRAIN WITH AND WITHOUT CONTRAST (05/08/2025 6:37 PM EDT) Anatomical Region Laterality Modality Head Magnetic Resonan ce 05/09/2025 3:01 PM EDT Impressions 05/09/2025 3:06 PM EDT 1. No acute intracranial abnormality. No acute infarct, hemorrhage, or abnormal enhancement. Narrative 05/09/2025 3:06 PM EDT MRI BRAIN WITH AND WITHOUT CONTRAST Referring clinician's provided indication for this examination in [facility]: * Headache, chronic, new features or increased [...] clinician's provided indication for this examination in [facility]: *Headache, chronic, new features or increased frequency; [...] abnormality. No acute infarct, hemorrhage, orabnormal enhancement. Tomás Montalvo MD IMG MR HEAD/NECK Final Resu lt documented in this encounter Visit Diagnoses Diagnosis Frequent headaches- Primary Frequent headaches documented in this encounter Care Teams Recycling Sorter Relationship Specialty Start Date End Date Tomás Montalvo MD [address] [place] [phone] [email or web address] PCP - General Family Medicine 10/19/23 documented as of this encounter Additional Source Comments The information contained in this document represents components of the legal health record. It is not the complete legal health record.[facility]
--- OUTSIDE RECORDS SUMMARY | 2025-06-17 06:23 | XMS_ITS | Encounter Summary ---
Author Organization [facility] Address [address] [facility] [address] [place] [address] Phone Care Team Providers Care Residential Construction Instructor Name Role Phone Tomás Montalvo MD Primary Care Provider [phone] Tomás Montalvo MD Primary Care Provider [phone] Encounter Details Date Type Department Care Team (Late st Contact Info) Description 07/17/2022 Procedure Pass [facility], Ct Scan - [facility] [address] [place] [address] Social History Tobacco Use Types Packs/Day Years [...] on file documented as of this encounter Functional Status * Calculated C-SSRS Risk Score (Lifetime/Recent) Answer Date of Assessment Author No Risk Indicated 07/17/2022 7:51 AM Marzena Orlando RN * [place] Suicide Severity Rating Scale (Screener/Recent Self-Report) Question Answer Date of Assessment Author 1. Wish to be (Past 1 Month) No 07/17/2022 7:51 AM Graeme Pizano RN 2. Non-Specific Active Suicidal Thoughts (Past 1 Month) No 07/17/2022 7:51 AM Graeme Pizano RN 6. Suicidal Behavior (Lifetime) No 07/17/2022 7:51 AM EST Graeme Piper RN documented as of this encounter Plan of Treatment Upcoming Encounters Date Type Department Care Team (Late st Contact Info) Description 06/22/2025 8:00 AM EDT Office Visit [facility] Gastro[facility]ology [facility] [address] [place] [address] Unknown, Unknown, Pamela Merino, PUMPING STATION SUPERVISOR [address] [place] [address] [email or web address] documented as of this encounter Visit Diagnoses Not on filedocumented in this encounter Additional Health Concerns Infection Onset Date Last Indicated Resolved Time CoV-Risk 10/19/2023 10/19/2023 10/30/2023 1:22 AM EST documented as of this encounter Care Teams Residential Construction Instructor Relationship Specialty Start Date End Date Tomás Montalvo MD [email or web address] PCP - General Family Medicine 07/29/19 10/18/23 Tomás Montalvo MD [address] [place] [phone] [email or web address] PCP - General Family Medicine 10/19/23 documented as of this encounter Additional Source Comments The information contained in this document represents components of the legal health record. It is not the complete legal health record.[facility]
--- OUTSIDE RECORDS SUMMARY | 2025-06-17 06:23 | XMS_ITS | Encounter Summary ---
Author Organization [facility] Address [address] [place] [address] Phone Care Team Providers Care Nursing Attendant Name Role Phone Tomás Montalvo MD Primary Care Provider [phone] Tomás Montalvo MD Primary Care Provider [phone] Encounter Details Date Type Department Care Team (Late st Contact Info) Description 10/11/2021 Procedure Pass [facility], Ct Scan - [facility] [address] [place] [address] Social History Tobacco Use Types Packs/Day Years [...] Date of Assessment Author No Risk Indicated 10/11/2021 3:17 PM Lisa Rodriguez RN * [place] Suicide Severity Rating Scale (Screener/Recent Self-Report) Question Answer Date of Assessment Author 1. Wish to be (Past 1 Month) No 10/11/2021 3:17 PM Apple Parsons, DARLENE 2. Non-Specific Active Suicidal Thoughts (Past 1 Month) No 10/11/2021 3:17 PM Apple Parsons, DARLENE 6. Suicidal Behavior (Lifetime) No 10/11/2021 3:17 PM EST Apple Lehman RN documented as of this encounter Plan of Treatment Upcoming Encounters Date Type Department Care Team (Late st Contact Info) Description 06/22/2025 8:00 AM EDT Office Visit [facility] [address] [place] [address] Unknown, Unknown, Pamela Merino, DECAL TRANSFERRER [address] [place] [address] [email or web address] documented as of this encounter Visit Diagnoses Not on filedocumented in this encounter Additional Health Concerns Infection Onset Date Last Indicated Resolved Time CoV-Risk 10/19/2023 10/19/2023 10/30/2023 1:22 AM EST documented as of this encounter Care Teams Nursing Attendant Relationship Specialty Start Date End Date Tomás Montalvo MD [email or web address] PCP - General Family Medicine 07/29/19 10/18/23 Tomás Montalvo MD [address] [place] [phone] [email or web address] PCP - General Family Medicine 10/19/23 documented as of this encounter Additional Source Comments The information contained in this document represents components of the legal health record. It is not the complete legal health record.[facility]
[2025-06-17 08:28] LABS: Prostate Specific Antigen 0.81 ng/mL (<0.05-4.0)
== END 2025-06-17 06:21 | disposition home or self-care (01) ==
LOC: HO.LAB 06:20
PROVIDERS: PCP Family Medicine; Visit Provider Urology
DX: N32.89 Other specified disorders of bladder (principal); Z12.5 Encounter for screening for malignant neoplasm of prostate
CPT/HCPCS: 36415; 84153

== ENCOUNTER 2025-07-13 12:48 | Outpatient (AMB) | payer BC, SELFPAY ==
--- NOTE | 2025-07-13 13:21 | MHC.OFFVIS ---
Intake Visit Reasons: 6M PSA/PVR(set) Intake Note: Patient Is Present for PSA/PVR Urology Med: Oxybutynin, Antibiotic Allergy: Levofloxacin Blood Thinner: Aspirin Lab: PSA 0.81 06/17/2025 Patient states he gets up every half hour to urinate during the night. Last PVR:0ML PVR: 54ml Performance Analyst Required: No Accompanied by: Self / Same As Patient Allergies levofloxacin Allergy (Severe, Verified 07/13/25 13:25) Difficulty Swallowing HPI Comments Details: Caesar is a pleasant male. He is a patient of Dr. Jesus. He is seen for the following urologic conditions - prostate cancer - nephrolithiasis - rising PSA - anastomotic stricture - bladder instability Slow PSA rise continue with Q six-month visit - PSAD 12 months Bladder instability with urgency minimal sensation Has marked nocturia but drinks significant water in the evening Oxybutynin 5 mg helpful, no longer has urgency after arriving at work Six-month follow-up PVR and PSA Prostate cancer 2009 radical prostatectomy with external beam radiation for rising PSA 2011 Initial therapy radical perineal prostatectomy Subsequent therapy includes radiation for rising PSA 2011 PSA - 11/10 0.11, 04/12 0.11, 10/14 0.1, 09/14 0.15, 06/14 0.17, 05/16 0.16, 11/14 0.22, 09/17 0.28, 01/15 0.34, 07/18 0.48, 01/16 0.7, 06/18 0.8 Started finasteride - which will alternate Prior history of anastomotic stricture requiring CIC 4 times a week ongoing for the foreseeable future This is to prevent recurrence of stricture Follow-up on distal anastomotic stricture Using catheter 2 times per week to dilate Has helped with urinary flow Did have infection April 2023 - Has been given self start antibiotics Nephrolithiasis Prior history of nephrolithiasis Imaging - 06/14 CT multiple small stones right side, pelvis consistent with post prostatectomy Intervention - prior ESWL PFSH Medical History History of radiation therapy HTN (hypertension) GERD (gastroesophageal reflux disease) Renal stone Prostate cancer Surgical History Hx of radical prostatectomy Hx of cystoscopy Hx of lithotripsy Social History Alcohol intake: never Patient Tobacco Use Status: Never used Tobacco Review of Systems Const Denies chills and Denies fever(s) Card Reports no additional complaints and Denies syncope Resp Denies cough GI Denies abdominal pain and Denies heartburn Reports as per HPI and Denies change in libido Neuro Denies syncope Psych Denies change in libido Endo Denies change in libido Physical Exam Const General: cooperative, healthy appearing, comfortable and no acute distress Orientation/consciousness: patient oriented x3 HEENT Face and sinus: Yes normal facial exam Mouth: moist mucous membranes Neck Neck: Yes normal visual inspection, Yes full ROM and Yes trachea midline Chest Chest palpation & inspection: normal inspection of the chest Resp Effort & Inspection: normal respiratory effort, able to speak in complete sentences and no respiratory distress GI Inspection: Yes normal to inspection Back/Spine/Pelvis Cervical Spine: normal cervical lordosis Thoracic/Lumbar Spine: thoracic and lumbar spine normal to inspection Skin General skin exam: no rashes or lesions noted Neuro General: patient oriented x3, gait normal, tone normal and moves all extremities Extrem General: Yes normal to inspection and Yes capillary refill normal Office Procedures Post Void Residual Post Residual Void Post Void Residual (PVR): 54 [id number] Void Residual by ultrasound Results AMB Urinalysis, Automated UA Leukoctes 0 Ricky/uL Last Edit by CORNELIO Parker on 07/13/25 13:32 UA Nitrite Negative Last Edit by CORNELIO Parker on 07/13/25 13:32 UA Urobilinogen 0.2 mg/dL Last Edit by CORNELIO Parker on 07/13/25 13:32 UA Protein 0 mg/dL Last Edit by CORNELIO Parker on 07/13/25 13:32 UA pH 6.0 Last Edit by CORNELIO Parker on 07/13/25 13:32 UA Blood 0 Enrique/uL Last Edit by CORNELIO Parker on 07/13/25 13:32 UA Specific [place] 1.020 Last Edit by CORNELIO Parker on 07/13/25 13:32 UA Ketone Negative Last Edit by CORNELIO Parker on 07/13/25 13:32 UA Bilirubin 0 mg/dL Last Edit by CORNELIO Parker on 07/13/25 13:32 UA Glucose 0 mg/dL Last Edit by CORNELIO Parker on 07/13/25 13:32 Results Reviewed Results Reviewed: Laboratory Last Values Urine pH (Auto) 6.0 07/13/25 13:25 Specific [place] (Auto) 1.020 07/13/25 13:25 Urine Protein (Auto) 0 mg/dL 07/13/25 13:25 Glucose (UA)(Auto) 0 mg/dL 07/13/25 13:25 Urine Ketones (Auto) Negative 07/13/25 13:25 Urine Blood (Auto) 0 Enrique/uL 07/13/25 13:25 Urine Nitrite (Auto) Negative 07/13/25 13:25 Urine Bilirubin (Auto) 0 mg/dL 07/13/25 13:25 Urine Urobilinogen (Auto) 0.2 mg/dL 07/13/25 13:25 Leukocyte Esterase (Auto) 0 Ricky/uL 07/13/25 13:25 Assessment & Plan Assessment & Plan (1) Bladder stones: Code(s): N21.0 - Calculus in bladder Category: Medical Plan Six-month follow-up PSA Orders: Orders AMB Urinalysis Automated Today Z13.9 - Encounter for screening, unspecified US bladder 6 Months C61 - Malignant neoplasm of prostate AMB Post Void Residual by ultrasound Today N32.89 - Other specified disorders of bladder Prostate Specific Antigen 6 Months C61 - Malignant neoplasm of prostate Patient Instructions: This note is constructed using voice recognition software. While every effort has been made to ensure accuracy authorizer errors may have been included. Imaging studies, laboratory and physical exam results were discussed and reviewed in detail. No major barriers to patient understanding were identified. An opportunity to ask questions regarding the treatment plan was provided. All questions were answered. The patient expressed understanding and agreement with the above treatment plan. The patient is aware they should contact our office by phone for worsening of their current condition or the appearance of new urologic symptoms. Compliance is encouraged with any medications and followup testing that is ordered. It is a privilege to participate in the urologic care of your patient. If you have any questions or concerns regarding treatment for the above conditions, or other urologic issues, please do not hesitate to contact me. The office telephone contact is [phone]. Sincerely, Dr Ronnell Pena MD, [facility] - Urology Compassionate Specialist Care for the Genitourinary System Coding Level of Care Code Est Pt Level 3 (54038) Complex EM visit Add On G2211 Diagnoses Bladder stones N21.0 CPT Codes Post Residual Void - PVR CPT Code: 14688-[id number] Void Residual by ultrasound ([id number])
--- OUTSIDE RECORDS SUMMARY | 2025-07-14 00:32 | XMS_ITS | Encounter Summary ---
Author Organization [facility] Address [address] [facility] [facility] [address] [place] [address] Phone Care Team Providers Care Online Education Manager Name Role Phone Tomás Montalvo MD Primary Care Provider [phone] Tomás Montalvo MD Primary Care Provider [phone] Encounter Details Date Type Department Care Team (Late Contact Info) Description 10/13/2019 Procedure Pass [facility] Endoscopy Admitting Dept Virtual Department [address] [place] [address] Social History Tobacco Use Types Packs/Day Years [...] Department Care Team (Late Contact Info) Description 11/02/2025 9:00 AM EDT Office Visit [facility] Gastro[facility]ology Clinic [address] [place] [address] Pamela Painting CNP [address] [place] [address] documented as of this encounter Visit Diagnoses Not on filedocumented in this encounter Additional Health Concerns Infection Onset Date Last Indicated Resolved Time CoV-Risk 10/19/2023 10/19/2023 10/30/2023 1:22 AM EST documented as of this encounter Care Teams Online Education Manager Relationship Specialty Start Date End Date Tomás Montalvo MD [email or web address] PCP - General Family Medicine 07/29/19 10/18/23 Tomás Montalvo MD [address] [place] [phone] [email or web address] PCP - General Family Medicine 10/19/23 documented as of this encounter Additional Source Comments The information contained in this document represents components of the legal health record. It is not the complete legal health record.[facility]
--- OUTSIDE RECORDS SUMMARY | 2025-07-14 00:33 | XMS_ITS | Encounter Summary ---
Author Organization [facility] Address [address] [facility] [address] [place] [address] Phone Care Team Providers Care Customs House Broker Name Role Phone Tomás Montalvo MD Primary Care Provider [phone] Encounter Details Date Type Department Care Team (Late st Contact Info) Description 03/24/2025 Procedure Pass [facility], [address] [address] Social History Tobacco Use Types Packs/Day Years [...] Care Team (Late st Contact Info) Description 11/02/2025 9:00 AM EDT Office Visit [facility] Gastroenterology Clinic [address] [place] [address] Pamela Painting CNP [address] [place] [phone] [email or web address] documented as of this encounter Visit Diagnoses Not on filedocumented in this encounter Care Teams Customs House Broker Relationship Specialty Start Date End Date Tomás Montalvo MD [address] [place] [phone] [email or web address] PCP - General Family Medicine 10/19/23 documented as of this encounter Additional Source Comments The information contained in this document represents components of the legal health record. It is not the complete legal health record.[facility]
--- OUTSIDE RECORDS SUMMARY | 2025-07-14 00:33 | XMS_ITS | Encounter Summary ---
Author Organization [facility] Address [address] [facility] [facility] [facility] [address] [place] [address] Phone Care Team Providers Care Filer Metal Patterns Name Role Phone Tomás Montalvo MD Primary Care Provider [phone] Tomás Montalvo MD Primary Care Provider [phone] Encounter Details Date Type Department Care Team (Late st Contact Info) Description 07/17/2022 Procedure Pass [facility], Ct Scan - [facility] [address] [place] [address] Social History Tobacco Use Types Packs/Day Years [...] 07/17/2022 7:51 AM Marzena Orlando RN * [place] Suicide Severity Rating Scale (Screener/Recent Self-Report) Question [...] Description 11/02/2025 9:00 AM EDT Office Visit [facility]astro[facility]ology [facility] 10 [place] [address] Mert Pamela Richmond, WILLIAM [address] [place] [address] [email or web address] documented as of this encounter Visit Diagnoses Not on filedocumented in this encounter Additional Health Concerns Infection Onset Date Last Indicated Resolved Time CoV-Risk 10/19/2023 10/19/2023 10/30/2023 1:22 AM EST documented as of this encounter Care Teams Filer Metal Patterns Relationship Specialty Start Date End Date Tomás Montalvo MD [email or web address] PCP - General Family Medicine 07/29/19 10/18/23 Tomás Montalvo MD [address] [place] [phone] [email or web address] PCP - General Family Medicine 10/19/23 documented as of this encounter Additional Source Comments The information contained in this document represents components of the legal health record. It is not the complete legal health record.[facility]
--- OUTSIDE RECORDS SUMMARY | 2025-07-14 00:33 | XMS_ITS | Encounter Summary ---
Author Organization [facility] Address [address] [facility] [address] [place] [address] Phone Care Team Providers Care Seismology Teacher Name Role Phone Tomás Montalvo MD Primary Care Provider [phone] Tomás Montalvo MD Primary Care Provider [phone] Encounter Details Date Type Department Care Team (Late Contact Info) Description 05/10/2020 Procedure Pass [facility]oscopy Admitting Dept Virtual Department [address] [place] [phone] Social History Tobacco Use Types Packs/Day Years [...] Description 11/02/2025 9:00 AM EDT Office Visit [facility] Gastroenterology Clinic [address] [place] [address] Pamela Painting CNP [address] [place] [address] documented as of this encounter Visit Diagnoses Not on filedocumented in this encounter Additional Health Concerns Infection Onset Date Last Indicated Resolved Time CoV-Risk 10/19/2023 10/19/2023 10/30/2023 1:22 AM EST documented as of this encounter Care Teams Seismology Teacher Relationship Specialty Start Date End Date Tomás Montalvo MD [email or web address] PCP - General Family Medicine 07/29/19 10/18/23 Tomás Montalvo MD [address] [place] [phone] [email or web address] PCP - General Family Medicine 10/19/23 documented as of this encounter Additional Source Comments The information contained in this document represents components of the legal health record. It is not the complete legal health record.[facility]
--- OUTSIDE RECORDS SUMMARY | 2025-07-14 00:33 | XMS_ITS | Encounter Summary ---
Author Organization [facility] Address [address] [facility] [address] [place] [address] Phone Care Team Providers Care Director Adult Name Role Phone Tomás Montalvo MD Primary Care Provider [phone] Reason for Referral * MRI/CAT Scan - Closed Specialty Diagnoses / Procedures Referred By Karla mccurdy Referred To Contact Radiology Diagnoses Frequent headaches Procedures MRI Brain Tomás Montalvo MD [address] [place] [address] Phone: tel: fax: [email or web address] Referral ID Status Reason Start Date Expiration Date Visits Re quested Visits Authorized [id number] Closed 03/24/2025 03/24/2026 1 1 Encounter Details Date Type Department Care Team (Late st Contact Info) Description 03/24/2025 Transcribe Orders Virtual Department [address] [place] [address] Tomás Montalvo MD [address] [place] [phone] [email or web address] Frequent headaches (Primary Dx) Social History Tobacco [...] Description 11/02/2025 9:00 AM EDT Office Visit [facility] Gastroenterology Clinic [address] [place] [address] Pamela Painting, WILLIAM [address] [place] [address] [email or web address] documented as of this encounter Results * [...] clinician's provided indication for this examination in [facility]: * Headache, chronic, new features or [...] clinician's provided indication for this examination in [facility]: *Headache, chronic, new features or increased [...] headaches documented in this encounter Care Teams Director Adult Relationship Specialty Start Date End Date Tomás Montalvo MD [address] [place] [phone] [email or web address] PCP - General Family Medicine 10/19/23 documented as of this encounter Additional Source Comments The information contained in this document represents components of the legal health record. It is not the complete legal health record.[facility]
--- OUTSIDE RECORDS SUMMARY | 2025-07-14 00:33 | XMS_ITS | Encounter Summary ---
Author Organization [facility] Address [address] [address] [place] [address] Phone Care Team Providers Care Senior Lead Java Developer Name Role Phone Tomás Montalvo MD Primary Care Provider [phone] Tomás Montalvo MD Primary Care Provider [phone] Encounter Details Date Type Department Care Team (Late st Contact Info) Description 10/11/2021 Procedure Pass [facility], Ct Scan - [facility] [address] [place] [address] Social History Tobacco Use Types Packs/Day Years [...] 10/11/2021 3:17 PM Lisa Rodriguez RN * [place] Suicide Severity Rating Scale (Screener/Recent Self-Report) Question [...] Description 11/02/2025 9:00 AM EDT Office Visit [facility] Gastroenterology Clinic 10 [place] [address] Pamela Painting CNP [address] [place] [address] [email or web address] documented as of this encounter Visit Diagnoses Not on filedocumented in this encounter Additional Health Concerns Infection Onset Date Last Indicated Resolved Time CoV-Risk 10/19/2023 10/19/2023 10/30/2023 1:22 AM EST documented as of this encounter Care Teams Senior Lead Java Developer Relationship Specialty Start Date End Date Tomás Montalvo MD [email or web address] PCP - General Family Medicine 07/29/19 10/18/23 Tomás Montalvo MD [address] [place] [phone] [email or web address] PCP - General Family Medicine 10/19/23 documented as of this encounter Additional Source Comments The information contained in this document represents components of the legal health record. It is not the complete legal health record.[facility]
--- OUTSIDE RECORDS SUMMARY | 2025-07-14 00:34 | XMS_ITS | Clinical Summary ---
Author Organization [facility] Address [address] [place] [address] Phone Care Team Providers Care Franchise Broker Name Role Phone Jae Valle MD Primary Care Provider [phone] Allergies Active Allergy Reactions Criticality Noted Date [...] location in comments) or fever. 20 tablet 1 Active cyclobenzaprine (FLEXERIL) 10 MG tablet Take 1 tablet (10 mg total) by mouth 3 (three) times a day as needed. 20 tablet 2 Active Additional Information Patient not taking.Reported on 06/22/2025 tamsulosin (FLOMAX) 0.4 mg Cap Take 1 capsule (0.4 mg total) by mouth nightly at bedtime for 14 days. 14 capsule 2 Active benzonatate (TESSALON) 100 MG capsule Take 1 capsule (100 mg total) by mouth 3 (three) times a day as needed for cough. 20 capsule 4 Active Additional Information Patient not taking.Reported on 06/22/2025 famotidine (PEPCID) 20 MG tablet Take 1 tablet by mouth 2 (two) times a day. 3 Active oxyBUTYnin (DITROPAN-XL) 5 MG 24 hr tablet Take 1 tablet by mouth every morning. 4 Active omeprazole (PRILOSEC) 20 MG capsule Take 1 capsule (20 mg total) by mouth daily. 30 capsule 1 5 Active Active Problems Problem Noted Date Diagnosed Date Erosive esophagitis 06/20/2025 Ischemic colitis 10/12/2021 Colitis 10/11/2021 Assessment & [...] dysuria. His urologist is Dr. Pena in [place]. He underwent a procedure in August to dilate the urethra . Since this time he has had some urinary incontinence, but the dysuria has resolved --No new concerns. He is due to see Dr. Pena this week Encounters Date Type Department Care Team Description 06/22/2025 8:00 AM EDT Office Visit [facility] [address] [place] [phone] Unknown, Unknown, MD Painting, Pamela Richmond, WILLIAM Gastroesophageal reflux disease without esophagitis (Primary Dx) 05/08/2025 3:41 PM EDT - 05/08/2025 11:59 PM EDT Hospital Encounter [address] [address] Jae Valle MD Discharge Disposition: Home or Self Care 03/24/2025 Procedure Pass [address] [address] from Last 3 Months Social History Tobacco Use Types Packs/Day Years Used Date Smoking Tobacco: Never Smokeless Tobacco: Never Tobacco Cessation:Counseling Given: Not Answered Alcohol Use Standard Drinks/Week Comments Never 0 [...] Sign Reading Time Taken Comments Blood Pressure 118/74 06/22/2025 8:03 AM EDT Pulse 103 06/22/2025 8:03 AM EDT Temperature 36.3 C (97.3 F) 03/12/2025 8:25 AM EDT Respiratory Rate 15 03/12/2025 8:25 AM EDT Oxygen Saturation 95% 06/22/2025 8:03 AM EDT Inhaled Oxygen Concentration - - Weight 91.6 kg (202 lb) 06/22/2025 8:03 AM EDT Height 177.8 cm (5' 10 ) 06/22/2025 8:03 AM EDT Body Mass Index 28.98 06/22/2025 8:03 AM EDT Plan of Treatment Upcoming Encounters Date Type Department Care Team (Late st Contact Info) Description 11/02/2025 9:00 AM EDT Office Visit [facility] [address] [place] [phone] Pamela Painting CNP [address] [place] [address] [email or web address] Health Maintenance Due Date Last Done Comments LIPID PANEL 1955 DEPRESSION SCREENING 1969 HEPATITIS C SCREENING 1975 PNEUMOCOCCAL VACCINES (50+ years) (1 of 2 - PCV) 1976 COLOGUARD 2002 FIT TEST 2002 FOBT 2002 SIGMOIDOSCOPY 2002 VIRTUAL COLONOSCOPY 2002 INFLUENZA VACCINE (#1) 2025 , 07/12/2019, 07/10/2018, Additional history exists COVID-19 VACCINE ( season) 2025 12/15/2020, 11/24/2020 BLOOD PRESSURE 12/21/2025 06/22/2025 CREATININE LEVEL 03/12/2026 03/12/2025, , 10/12/2021, Additional history exists POTASSIUM LEVEL 03/12/2026 03/12/2025, 06/26, 10/12/2021, Additional history exists SCREENING FOR DIABETES 03/12/2028 03/12/2025 Adult Td,Tdap Booster 07/12/2029 07/12/2019, 009 COLONOSCOPY 10/13/2029 10/13/2019 COLORECTAL CANCER SCREENING 10/13/2029 RSV VACCINE (1 - 1-dose 75+ series) 2032 ZOSTER VACCINES Completed 07/02/2021, 03/26, 04/20/2015 SMOKING STATUS SCREENING (Once After 26 Yrs) Completed 06/22/2025 HEPATITIS A VACCINES Aged Out No long [...] this topic Medical Devices Implanted Type Area Metal Furniture Polisher Device Identifier Shelf Expiration Date Model / Serial / Lot [place] Prostate Removal Procedures Procedure Name Priority Date/Time Associated Diagnosis Comments MRI BRAIN WITH AND WITHOUT CONTRAST Routine 05/08/2025 6:37 PM EDT Frequent headaches BASIC METABOLIC PANEL (BMP) STAT 03/12/2025 5:58 AM EDT ENDOSCOPY, COLON [...] clinician's provided indication for this examination in [facility]: * Headache, chronic, new features or increased [...] clinician's provided indication for this examination in [facility]: *Headache, chronic, new features or increased frequency; [...] abnormality. No acute infarct, hemorrhage, orabnormal enhancement. us Jae Valle MD IMG MR HEAD/NECK Final Resu lt * (ABNORMAL) Basic metabolic panel (03/12/2025 5:58 AM EDT) SODIUM 137 133 - 146 mmol/L [facility] CHLORIDE 100 96 - 108 mmol/L [facility] POTASSIUM 3.9 3.3 - 5.1 mmol/L [facility] CO2 24 21 - 35 mmol/L [facility] BUN 15 6 - 19 mg/dL [facility] CREATININE 0.90 0.5 - 1.5 mg/dL [facility] GLUCOSE 122(H) 70 - 99 mg/dL [facility] CALCIUM 9.5 8.4 - 10.3 mg/dL [facility] EGFR 94 >59 mL/min/1.7 3m2 [facility] Comment:Estimated glomerular filtration rate calculated using the CKD-EPI refit equation. ANION GAP 17 10 - 20 mmol/L [facility] Blood 03/12/2025 5:58 AM EDT 03/12/2025 6:03 AM EDT us Collins Shell MD LAB BLOOD BKR ORDERABLES Final R esult [address] [address] * ENDOSCOPY, COLON (10/13/2019 8:12 AM EST) Narrative Transcriptions Kishan Rome MD - 10/13/2019 8:12 AM EST Patient Name: Caesar Rueda Attending MD:: KISHAN ROME MD Procedure Date: 10/13/2019 8:12 AM Date of : 1955 Age: 64 Admit Type: Outpatient Gender: Male Room: [facility] 05 Referring MD: JAE VALLE MD Exam Type: [...] bowel preparation was evaluated using the BBPS ([place] Bowel Preparation Scale) with scores of: Right [...] 8:12 AM Procedure Code(s): --- Professional --- 67479, Colonoscopy, flexible; diagnostic, including collection of specimen(s) by brushing or washing, when performed (separateprocedure) --- Technical --- 36184, Colonoscopy, flexible; diagnostic, including collection of specimen(s) [...] congenital malformations of intestine CPT copyright 2018 [employer]. All rights reserved. The codes documented in this report are preliminary and upon intelligence chief reviewmay be revised to meet current compliance requirements. Procedure Date: 10/13/2019 8:12:57 AM [address] [place] [address] Jae Valle MD GI PROCEDURE ORDERABLES Fin al Result from Last 3 Months or Most Recently Relevant to Health Maintenance Insurance BLUE CROSS OUT OF STATE PPO Care Teams Franchise Broker Relationship Specialty Start Date End Date Jae Valle MD [address] [place] [phone] [email or web address] PCP - General Family Medicine 10/19/23 Additional Source Comments The information contained in this document represents components of the legal health record. It is not the complete legal health record.[facility]
== END 2025-07-13 13:55 | disposition home or self-care (01) ==
LOC: HO.HUSH 12:49
PROVIDERS: PCP Family Medicine; Visit Provider Urology
DX: Z13.9 Encounter for screening, unspecified (principal); N21.0 Calculus in bladder
CPT/HCPCS: 99213

== ENCOUNTER → 2025-07-13 12:48 | Outpatient (BNVA) | payer BC, SELFPAY | PROVIDERS: PCP Family Medicine; Visit Provider Urology | DX: N32.89 Other specified disorders of bladder (principal); Z13.9 Encounter for screening, unspecified | CPT/HCPCS: 51798; 81003 ==